=== PATIENT | male | born 1950 | race Caucasian/White ===

== ENCOUNTER 2020-04-29 02:07 | Inpatient (IN) | payer MEDICARE, OTHER ==
[2020-04-29] MEDS ORDERED: Dexamethasone 10 MG/ML VIAL ONE (02:45)
--- NOTE | 2020-04-29 03:10 | PDOC.HHP ---
Hospitalist HPI Dyspnea History of Present Illness: PCP: [place] Patient is a 69-year-old male with a past medical history significant for COPD, CAD (2 stents), HLD that presents to our hospital as a transfer via EMS from [facility] for the above complaint. Apparently, the patient was seen 2 days ago at [facility] for increased shortness of breath, productive cough and one episode of diarrhea. He was diagnosed with pneumonia and discharged home on Levaquin. Last night he returned back to [place] emergency department for worsening shortness of breath. EMS had documented an oxygen saturation of 80%. At [place] emergency department, the patient presented tachycardic, tachypneic and hypoxic. Chest x-ray showed worsening left lower lobe pneumonia. Patient tested positive for COVID-19 virus. Lactic acid 3.3, CRP 6.81, WBCs 1.8. Initial troponin less than 0.010 and BNP 11.4. D-dimer 0.42. No patient was transferred to our hospital for further evaluation and care. The patient reports subjective fever and chills. He denies abdominal pain, nausea, vomiting, hematochezia/melena. Denies dysuria and hematuria. Denies any chest pain, heart palpitations or lightheadedness. Again, he endorses increased productive cough and sputum. He has had worsening dyspnea since last night. ED Course: VITAL SIGNS Sat Apr 29, 2020 02:10 NAVARRO Goodwin, Sejal BP: 129/66, MAP: 87, Pulse: 91, Resp: 24, Pain: 0, O2 sat: 90 on (Non Rebreather), Time: 04/29/2020 02:10. Allergies/Adverse Reactions: Allergy/AdvReac Type Severity Reaction Status Date / Time Tetanus Vaccines and Toxoid Allergy Unverified 04/29/20 03:24 Comments: 1. Atorvastatin 40 mg p.o. daily 2. Aspirin 81 mg p.o. daily 3. Albuterol 90 Eliazar inhaler 2 puffs inhalation every 4 to 6 hours as needed shortness of breath wheezing 4. Spiriva 1 inhalation daily 5. Symbicort 6. Levaquin Past History: PMHx: COPD (intermittent O2 at home), HLD, CAD x2, right eye blindness PSHx: Multiple bilateral eye surgeries, hernia repair x2, tonsillectomy, CAD x2 stents FHx: Contributory for cardiac disease Social: Lives with the spouse at home. Quit smoking 10 years ago. Drinks alcohol socially. Denies any illicit drug use. Ambulates without any assistive devices. Independent. Hospitalist HPI ROS All other systems reviewed; all pertinent +/- noted in HPI/Subj Hospitalist Exam General Appearance: NAD, awake alert. negative: ill appearing General - other findings: Disheveled Eye: anicteric sclera ENT: normocephalic atraumatic, moist mucosa Neck: supple, no lymphadenopathy Heart: RRR, no murmur, no gallops, no rubs, normal peripheral pulses Respiratory: CTAB, no wheezes, no rales, no tachypnea Respiratory - other findings: Diminished lower lobes Gastrointestinal: soft, non-tender, non-distended, normal bowel sounds, no rigidity Extremities: no cyanosis, no edema Skin: no rashes Neurological: no focal deficits Psychiatric: normal affect, A&O x 3 Hospitalist Results Result Diagrams: 04/29/20 03:42 Chest x-ray Status: report reviewed by me Additional Comments: Severe bullous emphysematous change. Interstitial and alveolar opacity in the left perihilar region/left base is suspicious for infectious pneumon itis/aspiration. Follow-up imaging following treatment advised for documentation of resolution. Hospitalist H&P A/P (1) Pneumonia due to COVID-19 virus Code(s): U07.1 - COVID-19; J12.82 - PNEUMONIA DUE TO CORONAVIRUS DISEASE 2019 Status: Acute (2) Sepsis Code(s): A41.9 - SEPSIS, UNSPECIFIED ORGANISM Status: Acute (3) COPD exacerbation Code(s): J44.1 - CHRONIC OBSTRUCTIVE PULMONARY DISEASE W (ACUTE) EXACERBATION Status: Acute (4) CAD (coronary artery disease) Code(s): I25.10 - ATHSCL HEART DISEASE OF [place] CORONARY ARTERY W/O ANG PCTRS Status: Chronic (5) HLD (hyperlipidemia) Code(s): E78.5 - HYPERLIPIDEMIA, UNSPECIFIED Status: Chronic Plan: Patient with COPD and CAD presents as a transfer from [facility] for Covid pneumonia. #Pneumonia due to COVID-19 virus Diagnosed 04/28/2020 Symptomatic 04/25/2020. Currently on high flow nasal cannula 60 L/min FiO2 80%, NAD. Continue dexamethasone. Start remdesivir. Start Lovenox and PPI. Supplemental oxygen Isolation precautions Start vitamin C, vitamin D, zinc, melatonin Check acute phase reactants. #Sepsis Presented tachycardic, tachypneic, hypoxic LA 3.3, WBCs 1.8 Given 500 mL NS at [facility]. Likely related to problem #1. We will repeat lactic acid, check UA. We will get CT chest. Continue Levaquin. #COPD exacerbation Endorse increased cough, sputum, hypoxia. When reconciled, restart home dose albuterol, Spiriva, Symbicort. Continue Levaquin. Supplemental oxygen. #CAD Stents x2. Restart home dose atorvastatin and aspirin. #Hyperlipidemia Restart home dose statin Lovenox for DVT prophylaxis. Protonix for GI prophylaxis. CODE STATUS full code. Discussed the case with Dr. Grewal, who agrees with plan of care.
[2020-04-29] MEDS ORDERED: Guaifenesin DM 100-10/5 ML UDCUP PO PRN (03:15)
[2020-04-29] MEDS ORDERED: Ondansetron ODT 4 MG TAB PO PRN (03:15)
[2020-04-29] MEDS ORDERED: Acetaminophen 325 MG TAB PO PRN (03:15)
[2020-04-29] MEDS ORDERED: Benzonatate 100 MG CAP PO PRN (03:21)
[2020-04-29 04:10] LABS: Anion Gap 15 mmol/L (10-20); BUN (Urea Nitrogen) 11 mg/dL (8.4-25.7); Calc. Creatinine Clearance 0 mL/min (70-130); Calcium 7.3 mg/dL (7.8-10.44); Carbon Dioxide 18 mmol/L (23-31); Chloride 106 mmol/L (98-107); Glucose 177 mg/dL (80-115); Potassium 3.9 mmol/L (3.5-5.1); Sodium 135 mmol/L (136-145)
[2020-04-29 06:17] LABS: Bacteria/HPF None Seen HPF (None Seen); Bilirubin Negative (Negative); Blood, Urine Negative (Negative); Clarity Clear (Clear); Glucose, Urine (Dipstick) Normal (Negative); Ketone, Urine 10 mg/dL (Negative); Leukocyte Negative Leu/uL (Negative); Nitrite Negative (Negative); Protein, Urine (Dipstick) Negative (Neg-Trace); RBC/HPF 0-3 HPF (0-3); Specific Gravity, Urine 1.019 (1.002-1.036); Squamous Epithelial None Seen HPF (0-3); Urobilinogen Normal mg/dL (Less than 2); WBC/HPF 0-3 HPF (0-3); pH, Urine 5.5 (5.0-9.0)
[2020-04-29 06:22] LABS: #Lymphocytes 0.1 thou/uL (1.20-3.40); #Monocytes 0.1 thou/uL (0.11-0.59); #Neutrophils 1.3 thou/uL (1.40-6.50); %Lymphocytes 8.2 % (21.0-51.0); %Monocytes 4.3 % (0.0-10.0); %Neutrophils 87.5 % (42.0-75.0); Mean Corpuscular HGB CONC 34.3 g/dL (32.0-36.0); Mean Corpuscular Hemoglobin 30.3 pg (27.0-31.0); Mean Corpuscular Volume 88.3 fL (78.0-98.0); Mean Platelet Volume 9.6 fL (7.4-10.4); Platelet Count 88 thou/uL (130-400); RBC Distribution Width 12.2 % (11.5-14.5); Red Blood Cell (RBC) Count 4.62 mill/uL (4.70-6.10); Reflex for Review?? NO; White Blood Cell (WBC) Count 1.5 thou/uL (4.8-10.8)
--- NOTE | 2020-04-29 08:42 | CT ---
PRELIMINARY REPORT/DIRECT RADIOLOGY/EMERGENCY AFTER HOURS PROCEDURE: EXAM: CT Chest with Intravenous Contrast. CLINICAL HISTORY: Hypoxia, covid PNA TECHNIQUE: Axial computed tomography images of the chest with intravenous contrast. CONTRAST: With; ISOVUE 370,80mL COMPARISON: None provided. FINDINGS: VASCULATURE: There is no evidence of aortic dissection. No central or segmental pulmonary embolism. Scattered calcified atherosclerosis of the descending aorta. LUNGS: There are severe emphysematous changes of the bilateral lungs. There is increased groundglass attenuation and subpleural reticulation within the visualized portions of the remaining lung with area of more focal consolidation along the dependent portions of the left lower lobe. PLEURAL SPACES: No pleural effusion. No pneumothorax. HEART AND MEDIASTINUM: No cardiomegaly. No significant pericardial effusion. There is 3 vessel coron lissette artery atherosclerosis. LYMPH NODES: No lymphadenopathy. BONES: No focal osseous abnormality or acute fracture. CHEST WALL AND UPPER ABDOMEN: A hypoattenuating lesion within the posterior right hepatic lobe which is too small to fully characterize by CT criteria. There is a small hiatal hernia. The remaining visualized upper abdomen is within normal limits. The upper abdominal solid organs are otherwise unr emarkable. The chest wall is unremarkable. IMPRESSION: 1. Severe emphysematous changes of the bilateral lungs (this may represent severe smoking-related em physema or idiopathic bullous emphysema/vanishing lung syndrome). 2. Diffuse groundglass attenuation and fibrosis within the remaining little visualized lung present. Overall this may represent chronic fibrosis although an acute component is likely given reported history of COVID 19. ELECTRONICALLY SIGNED BY: Butch Anidno MD Apr 29, 2020 5:21:19 AM EXCHANGE CONSULTANT FINAL REPORT CT CHEST WITH CONTRAST: History: Hypoxia. Covid pneumonia. Comparison: Chest radiograph prior day. Findings/impression: Concordant with the initial report. Transcribed Date/Time: 04/29/2020 9:09 AM
[2020-04-29] MEDS ORDERED: REMDESIVIR (EUA) 200 MG in Sodium Chloride 0.9% 250 ML 210 ML IV SCH (09:00)
[2020-04-29] MEDS: Cholecalciferol 1,000 UNITS (25 MCG) TAB PO SCH (09:17)
[2020-04-29] MEDS: Zinc Sulfate 220 MG CAP PO SCH (09:17)
[2020-04-29] MEDS: Ascorbic Acid 500 mg Chewable Tablet PO SCH (09:17)
[2020-04-29] MEDS: Dexamethasone 4 mg/ml Vial SLOW IVP SCH (09:18)
[2020-04-29 09:33] LABS: ALT (SGPT) 18 U/L (8-55); AST (SGOT) 33 U/L (5-34); Albumin 3.5 g/dL (3.4-4.8); Alkaline Phosphatase 64 U/L (40-110); Bilirubin, Direct 0.4 mg/dL (0.1-0.3); Bilirubin, Total 0.7 mg/dL (0.2-1.2); Protein, Total 5.6 g/dL (5.8-8.1)
[2020-04-29] MEDS: Enoxaparin Sodium 40 MG/0.4 ML SYRINGE SC SCH (11:10)
[2020-04-29] MEDS ORDERED: Iopamidol-370 76% 500 ML 1 ML ONE (11:31)
--- NOTE | 2020-04-29 13:20 | PDOC.EVN ---
Event Note - Event Note Event Note: Patient's case was reviewed. Patient was assessed. Patient reports she is feeling okay but still has some work of breathing. He is still requiring significant amounts of high flow nasal cannula oxygen with high FiO2 in order to maintain oxygen saturations. His lung exam reveals very coarse breath sounds on the left with some Velcro type rales on the right. CT scan of the chest shows perhaps the worst bullous emphysema I have ever seen. His his lungs are vastly destroyed due to bullous lesions. I estimate that he only has 15 to 20% of his lung parenchyma remaining. What is remaining appears to have infiltrate or scar. Find it incredible that he is doing as well as he is now. Patient was aware of these findings with his lungs. [facility] He has been told that lung reduction surgery was not an option due to the severity. He was also told that a lung transplant would be his only real option. We had a very denny discussion regarding his situation. Going on a ventilator would be catastrophic as it would likely cause bilateral pneumothoraces very promptly which would be immediately fatal. He agreed that a ventilator would not be reasonable. In the interim we will continue to support with the best medications and oxygen support we can provide for him. Overall his prognosis is likely extremely poor given the severity of the underlying lung disease.
[2020-04-29] MEDS: Melatonin 3 MG TAB PO SCH (22:04)
[2020-04-30 05:36] LABS: ALT (SGPT) 22 U/L (8-55); AST (SGOT) 48 U/L (5-34); Albumin 3.1 g/dL (3.4-4.8); Alkaline Phosphatase 57 U/L (40-110); Bilirubin, Direct 0.3 mg/dL (0.1-0.3); Bilirubin, Total 0.7 mg/dL (0.2-1.2); Protein, Total 5.3 g/dL (5.8-8.1)
[2020-04-30] MEDS: Cholecalciferol 1,000 UNITS (25 MCG) TAB PO SCH (08:14)
[2020-04-30] MEDS: Calcium Carbonate 600 MG TAB PO SCH ×2 (08:15→20:29)
[2020-04-30] MEDS: Ascorbic Acid 500 mg Chewable Tablet PO SCH (08:15)
[2020-04-30] MEDS: Zinc Sulfate 220 MG CAP PO SCH (08:15)
[2020-04-30] MEDS: Enoxaparin Sodium 40 MG/0.4 ML SYRINGE SC SCH ×2 (08:16→08:20)
[2020-04-30] MEDS: Dexamethasone 4 mg/ml Vial SLOW IVP SCH (08:16)
[2020-04-30] MEDS: REMDESIVIR (EUA) 100 MG in Sodium Chloride 0.9% 250 ML 230 ML IV SCH (08:22)
[2020-04-30] MEDS ORDERED: Aspirin 81 mg Enteric Coated Tablet PO SCH (09:00)
[2020-04-30] MEDS ORDERED: Tiotropium Bromide 4 GM INHALER IH SCH (09:15)
[2020-04-30] MEDS ORDERED: Ipratropium Bromide 2.5 ml Neb NEB SCH (13:00)
[2020-04-30 14:33] LABS: #Lymphocytes 0.5 thou/uL (1.20-3.40); #Monocytes 0.2 thou/uL (0.11-0.59); #Neutrophils 4.8 thou/uL (1.40-6.50); %Lymphocytes 8.9 % (21.0-51.0); %Monocytes 4.4 % (0.0-10.0); %Neutrophils 86.7 % (42.0-75.0); Hemoglobin 15.8 g/dL (14.0-18.0); Mean Corpuscular HGB CONC 34.4 g/dL (32.0-36.0); Mean Corpuscular Hemoglobin 30.4 pg (27.0-31.0); Mean Corpuscular Volume 88.5 fL (78.0-98.0); Mean Platelet Volume 9.3 fL (7.4-10.4); Platelet Count 124 thou/uL (130-400); RBC Distribution Width 12.3 % (11.5-14.5); White Blood Cell (WBC) Count 5.5 thou/uL (4.8-10.8)
[2020-04-30 14:40] LABS: PTT 37.5 sec (22.9-36.1); Prothrombin Time 13.6 sec (12.0-14.7)
[2020-04-30] MEDS ORDERED: Albuterol 200 PUFF (6.7GM INHALER) INH PRN (14:49)
--- NOTE | 2020-04-30 14:52 | PDOC.HOSPP ---
- Subjective Encounter Date: 04/30/20 Subjective: Patient is fairly stable with his breathing. He reports that the effort to try to sit up to eat makes him too short of breath. He also reports that at times he is feeling very hot and that is making him feel short of breath as well. - Objective Vital Signs & Weight: Vital Signs (12 hours) Temp Pulse Resp BP BP Pulse Ox 04/30/20 12:10 98.0 F 86 14 97/58 L 92 L 04/30/20 08:15 94 L 04/30/20 07:40 98.1 F 92 18 106/59 L 94 L 04/30/20 03:37 91 L 04/30/20 03:20 99.1 F 86 22 H 144/75 H 94 L Weight Weight 151 lb 6.4 oz I&O: 04/29/20 04/30/20 05/01/20 06:59 06:59 06:59 Intake Total 2089 Balance 2089 Result Diagrams: 04/30/20 14:24 04/29/20 03:42 Hospitalist ROS - Medication Medications: Active Medications Generic Name Dose Route Start Last Admin Trade Name Ben PRN Reason Stop Dose Admin Ascorbic Acid 1,000 mg 04/29/20 09:00 04/30/20 08:15 Ascorbic Acid 500 Mg Chewable Tablet PO 1,000 mg DAILY ERENDIRA Administration Calcium Carbonate 600 mg 04/30/20 09:00 04/30/20 08:15 Calcium Carbonate 600 Mg Tab PO 600 mg BID ERENDIRA Administration Cholecalciferol 5,000 units 04/29/20 09:00 04/30/20 08:14 Cholecalciferol 1,000 Units (25 Mcg) Tab PO 5,000 units DAILY ERENDIRA Administration Dexamethasone 6 mg 04/29/20 09:00 04/30/20 08:16 Dexamethasone 4 Mg/Ml Vial SLOW IVP 6 mg DAILY ERENDIRA Administration Levofloxacin 500 mg/ Device 100 mls @ 100 mls/hr 04/29/20 04:00 04/30/20 05:55 IVPB 100 mls Q24HR ERENDIRA Administration Remdesivir 100 mg/ Sodium 250 mls @ 250 mls/hr 04/30/20 09:00 04/30/20 08:22 Chloride IV 05/03/20 09:59 250 mls 0900 ERENDIRA Administration Melatonin 3 mg 04/29/20 21:00 04/29/20 22:04 Melatonin 3 Mg Tab PO 3 mg HS ERENDIRA Administration Pantoprazole Sodium 40 mg 04/29/20 09:00 04/30/20 08:15 Pantoprazole 40 Mg Tab PO 40 mg DAILY ERENDIRA Administration Zinc Sulfate 220 mg 04/29/20 09:00 04/30/20 08:15 Zinc Sulfate 220 Mg Cap PO 220 mg DAILY ERENDIRA Administration Hospitalist Exam Vitals: Vital Signs (12 hours) Temp Pulse Resp BP BP Pulse Ox 04/30/20 12:10 98.0 F 86 14 97/58 L 92 L 04/30/20 08:15 94 L 04/30/20 07:40 98.1 F 92 18 106/59 L 94 L 04/30/20 03:37 91 L 04/30/20 03:20 99.1 F 86 22 H 144/75 H 94 L Weight Weight 151 lb 6.4 oz General Appearance: NAD, awake alert Heart: RRR, no murmur, no gallops, no rubs, normal peripheral pulses Respiratory - other findings: Coarse breath sounds on the left with rales, coarse on the right Gastrointestinal: soft, non-tender, non-distended, normal bowel sounds Extremities: no cyanosis, no clubbing, no edema Skin: normal turgor Neurological: no focal deficits Musculoskeletal: generalized weakness Psychiatric: normal affect, normal behavior Hosp A/P (1) Giant bullous emphysema Code(s): J43.9 - EMPHYSEMA, UNSPECIFIED Status: Acute (2) Acute respiratory failure with hypoxia Code(s): J96.01 - ACUTE RESPIRATORY FAILURE WITH HYPOXIA Status: Acute (3) Pancytopenia Code(s): D61.818 - OTHER PANCYTOPENIA Status: Acute (4) Hemoptysis Code(s): R04.2 - HEMOPTYSIS Status: Acute (5) Pneumonia due to COVID-19 virus Code(s): U07.1 - COVID-19; J12.82 - PNEUMONIA DUE TO CORONAVIRUS DISEASE 2019 Status: Acute (6) CAD (coronary artery disease) Code(s): I25.10 - ATHSCL HEART DISEASE OF [place] CORONARY ARTERY W/O ANG PCTRS Status: Chronic (7) HLD (hyperlipidemia) Code(s): E78.5 - HYPERLIPIDEMIA, UNSPECIFIED Status: Chronic (8) Sepsis Code(s): A41.9 - SEPSIS, UNSPECIFIED ORGANISM Status: Acute - Plan Acute hypoxic respiratory failure: Due to a combination of giant bullous emphysema and acute COVID-19 pneumonia. Continue with high flow nasal cannula. If patient progresses he may be a candidate for BiPAP. Suspect attempts at positive pressure ventilation may be highly risky given the severity of his bullous emphysema. Giant bullous emphysema: Patient was aware of this previously. He is followed by Dr. Gannon at the [facility] [place] in [place]. He is followed locally by Dr. Jeevan Daniel. 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 Only about 20% of the left lung appears to be remaining. This puts the patient at very high risk for a poor outcome due to his current Covid. We will continue with his maintenance inhalers and bronchodilators. Unclear if this represents severe bullous emphysema or "vanishing lung syndrome". Pancytopenia: Likely due to the acute viral infection. White blood cell count went down to 5 and his platelets were at 76. Appeared to be improving by 04/30/2020. Aspirin was held due to his thrombocytopenia and hemoptysis. Lovenox being held due to his hemoptysis and thrombocytopenia. COVID-19 pneumonia: Remdesivir, Decadron. Supplementing with vitamin C, vitamin D, zinc although there is little supporting evidence. Support his oxygenation is best possible. Appears to have either significant fibrosis or severe inflammatory changes of the minimal residual left lung tissue. His CRP on 04/28/2020 was 6.8, on 04/30/2020 it is 2.5. 04/28/2020 his D-dimer was normal at 0.42 Sepsis: Secondary to acute viral illness. Treat the underlying COVID-19 pneumonia. He is receiving the Remdesivir. Also receiving empirical Levaquin. Coronary artery disease: Continue with aspirin and statin. Aspirin being held due to hemoptysis and thrombocytopenia. Disposition: A long conversation with the patient and then subsequently with his and son on 04/30/2020. Patient is certainly facing an uphill ariza and should it be successful will likely be a prolonged hospitalization. They should be prepared for that. His tested positive on 04/29/2020 and his son, who is a outpatient psychiatrist and who lives with them, has tested on 04/30/2020 but results are pending. He did indicate that he has lost his sense of taste and smell.
[2020-04-30] MEDS ORDERED: Pantoprazole 40 MG VIAL IVP SCH (15:15)
[2020-04-30] MEDS: Mometasone 200 MCG/Formoterol 5 MCG 120 PUFF INHALER INH SCH (18:20)
[2020-04-30] MEDS: Melatonin 3 MG TAB PO SCH (20:29)
[2020-04-30] MEDS: Atorvastatin Calcium 40 MG TAB PO SCH (20:29)
[2020-05-01] MEDS: Mometasone 200 MCG/Formoterol 5 MCG 120 PUFF INHALER INH SCH ×2 (04:56→16:41)
[2020-05-01] MEDS: Tiotropium Bromide 4 GM INHALER IH SCH (04:56)
[2020-05-01] MEDS ORDERED: Lorazepam 2 MG/ML VIAL SLOW IVP SCH (05:00)
[2020-05-01 05:07] LABS: Hemoglobin 14.4 g/dL (14.0-18.0); Mean Corpuscular HGB CONC 34.3 g/dL (32.0-36.0); Mean Corpuscular Hemoglobin 29.9 pg (27.0-31.0); Mean Corpuscular Volume 87.1 fL (78.0-98.0); Platelet Count 136 thou/uL (130-400); RBC Distribution Width 12.2 % (11.5-14.5); Red Blood Cell (RBC) Count 4.83 mill/uL (4.70-6.10); White Blood Cell (WBC) Count 4.3 thou/uL (4.8-10.8)
[2020-05-01 05:22] LABS: ALT (SGPT) 36 U/L (8-55); AST (SGOT) 57 U/L (5-34); Albumin 3.2 g/dL (3.4-4.8); Alkaline Phosphatase 65 U/L (40-110); Anion Gap 11 mmol/L (10-20); BUN (Urea Nitrogen) 18 mg/dL (8.4-25.7); Bilirubin, Direct 0.4 mg/dL (0.1-0.3); Bilirubin, Total 0.9 mg/dL (0.2-1.2); Calc. Creatinine Clearance 104 mL/min (70-130); Calcium 7.9 mg/dL (7.8-10.44); Carbon Dioxide 23 mmol/L (23-31); Chloride 106 mmol/L (98-107); Globulin 2.2 g/dL (2.4-3.5); Glucose 131 mg/dL (80-115); Potassium 4.3 mmol/L (3.5-5.1); Protein, Total 5.4 g/dL (5.8-8.1); Sodium 136 mmol/L (136-145)
[2020-05-01 05:44] LABS: Band 9 % (5-11); Lymphocytes 17 % (21-51); MDiff Complete? YES; Monocytes 13 % (0-10); Neutrophil 61 % (42-75); Platelet Morphology Comment Appears Adequate
[2020-05-01] MEDS: Ascorbic Acid 500 mg Chewable Tablet PO SCH (08:41)
[2020-05-01] MEDS: Cholecalciferol 1,000 UNITS (25 MCG) TAB PO SCH (08:42)
[2020-05-01] MEDS: Dexamethasone 4 mg/ml Vial SLOW IVP SCH (08:42)
[2020-05-01] MEDS: Calcium Carbonate 600 MG TAB PO SCH ×2 (08:42→20:42)
[2020-05-01] MEDS: Pantoprazole 40 MG VIAL IVP SCH (08:43)
[2020-05-01] MEDS: Zinc Sulfate 220 MG CAP PO SCH (08:43)
[2020-05-01] MEDS: REMDESIVIR (EUA) 100 MG in Sodium Chloride 0.9% 250 ML 230 ML IV SCH (11:02)
--- NOTE | 2020-05-01 17:05 | PDOC.HOSPP ---
- Subjective Encounter Date: 05/01/20 Subjective: Patient reports he is actually feeling okay today. Seems to do better when he is on his right side. He is fully aware that the functional lung is on his left side and he does better when it is aerated in that position. He has been able to eat a little bit. He has been drinking some supplements as well. - Objective Vital Signs & Weight: Vital Signs (12 hours) Temp Pulse Resp BP BP Pulse Ox 05/01/20 11:15 98.3 F 94 28 H 101/52 L 91 L 05/01/20 08:45 81 28 H 117/61 88 L 05/01/20 07:40 98 Weight Weight 151 lb 6.4 oz I&O: 04/30/20 05/01/20 05/02/20 06:59 06:59 06:59 Intake Total 2090 1451.5 480 Output Total 1200 Balance 2090 251.5 480 Result Diagrams: 05/01/20 04:28 05/01/20 04:28 Hospitalist ROS - Medication Medications: Active Medications Generic Name Dose Route Start Last Admin Trade Name Freq PRN Reason Stop Dose Admin Ascorbic Acid 1,000 mg 04/29/20 09:00 05/01/20 08:41 Ascorbic Acid 500 Mg Chewable Tablet PO 1,000 mg DAILY ERENDIRA Administration Atorvastatin Calcium 40 mg 04/30/20 21:00 04/30/20 20:29 Atorvastatin Calcium 40 Mg Tab PO 40 mg HS ERENDIRA Administration Calcium Carbonate 600 mg 04/30/20 09:00 05/01/20 08:42 Calcium Carbonate 600 Mg Tab PO 600 mg BID ERENDIRA Administration Cholecalciferol 5,000 units 04/29/20 09:00 05/01/20 08:42 Cholecalciferol 1,000 Units (25 Mcg) Tab PO 5,000 units DAILY ERENDIRA Administration Dexamethasone 6 mg 04/29/20 09:00 05/01/20 08:42 Dexamethasone 4 Mg/Ml Vial SLOW IVP 6 mg DAILY ERENDIRA Administration Levofloxacin 500 mg/ Device 100 mls @ 100 mls/hr 04/29/20 04:00 05/01/20 04:56 IVPB 100 mls Q24HR ERENDIRA Administration Remdesivir 100 mg/ Sodium 250 mls @ 250 mls/hr 04/30/20 09:00 05/01/20 11:02 Chloride IV 05/03/20 09:59 250 mls 0900 ERENDIRA Administration Melatonin 3 mg 04/29/20 21:00 04/30/20 20:29 Melatonin 3 Mg Tab PO 3 mg HS ERENDIRA Administration Mometasone Furoate/Formoterol Fumar 2 puff 04/30/20 18:30 05/01/20 16:41 Mometasone 200 Mcg/Formoterol 5 Mcg 120 Puff Inhaler INH 2 puff BID-RT ERENDIRA Administration Pantoprazole Sodium 40 mg 05/01/20 09:00 05/01/20 08:43 Pantoprazole 40 Mg Vial IVP 40 mg DAILY ERENDIRA Administration Sodium Chloride 10 ml 04/29/20 03:15 05/01/20 11:02 Flush - Normal Saline 10 Ml Syringe IVF 10 ml PRN PRN Administration Saline Flush Tiotropium [place] 0 gm 05/01/20 07:00 05/01/20 04:56 Tiotropium [place] 4 Gm Inhaler IH 2 puff DAILY-RT ERENDIRA Administration Zinc Sulfate 220 mg 04/29/20 09:00 05/01/20 08:43 Zinc Sulfate 220 Mg Cap PO 220 mg DAILY ERENDIRA Administration Hospitalist Exam Vitals: Vital Signs (12 hours) Temp Pulse Resp BP BP Pulse Ox 05/01/20 11:15 98.3 F 94 28 H 101/52 L 91 L 05/01/20 08:45 81 28 H 117/61 88 L 05/01/20 07:40 98 Weight Weight 151 lb 6.4 oz General Appearance: NAD, awake alert Heart: RRR, no murmur, no gallops, no rubs, normal peripheral pulses Respiratory: tachypneic Respiratory - other findings: Coarse breath sounds bilaterally. Rales in the left base. Gastrointestinal: soft, non-tender, non-distended, normal bowel sounds, no palpable masses, no hepatomegaly, no splenomegaly Extremities: no cyanosis, no clubbing, no edema Skin: normal turgor Neurological: no focal deficits Musculoskeletal: normal tone, generalized weakness Psychiatric: normal affect, normal behavior, A&O x 3 Hosp A/P (1) Acute respiratory failure with hypoxia Code(s): J96.01 - ACUTE RESPIRATORY FAILURE WITH HYPOXIA Status: Acute (2) Giant bullous emphysema Code(s): J43.9 - EMPHYSEMA, UNSPECIFIED Status: Acute (3) Pancytopenia Code(s): D61.818 - OTHER PANCYTOPENIA Status: Resolved (4) Hemoptysis Code(s): R04.2 - HEMOPTYSIS Status: Acute (5) Pneumonia due to COVID-19 virus Code(s): U07.1 - COVID-19; J12.82 - PNEUMONIA DUE TO CORONAVIRUS DISEASE 2019 Status: Acute (6) CAD (coronary artery disease) Code(s): I25.10 - ATHSCL HEART DISEASE OF [place] CORONARY ARTERY W/O ANG PCTRS Status: Chronic (7) HLD (hyperlipidemia) Code(s): E78.5 - HYPERLIPIDEMIA, UNSPECIFIED Status: Chronic (8) Sepsis Code(s): A41.9 - SEPSIS, UNSPECIFIED ORGANISM Status: Acute - Plan Acute hypoxic respiratory failure: Due to a combination of giant bullous emphysema and acute COVID-19 pneumonia. Continue with high flow nasal cannula. If patient progresses he may be a candidate for BiPAP. Suspect attempts at positive pressure ventilation may be highly risky given the severity of his bullous emphysema. Consulted Dr. Daniel, patient's local glove cuffer. Giant bullous emphysema: Patient was aware of this previously. He is followed by Dr. Gannon at the [facility] lung [place] in [place]. He is followed locally by Dr. Jeevan Daniel. 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 Only about 20% of the left lung appears to be remaining. This puts the patient at very high risk for a poor outcome due to his current Covid. We will continue with his maintenance inhalers and bronchodilators. Unclear if this represents severe bullous emphysema or "vanishing lung syndrome". Pancytopenia: Likely due to the acute viral infection. White blood cell count went down to 5 and his platelets were at 76. Appeared to be improving by 04/30/2020. Aspirin was held due to his thrombocytopenia and hemoptysis. Lovenox was held due to his hemoptysis and thrombocytopenia. Appeared to fully resolved by 05/01/2020. Lovenox resumed at a lower dose. COVID-19 pneumonia: Remdesivir, Decadron. Supplementing with vitamin C, vitamin D, zinc although there is little supporting evidence. Support his oxygenation is best possible. Appears to have either significant fibrosis or severe inflammatory changes of the minimal residual left lung tissue. His CRP on 04/28/2020 was 6.8, on 04/30/2020 it is 2.5. Down to 1.29 on 05/01/2020 04/28/2020 his D-dimer was normal at 0.42 Appears as though this patient may have been suffering from the primary Covid infection rather than the late stage autoantibody portion. Due to the severity of his underlying lung disease it still caused him severe hypoxic respiratory failure. Sepsis: Secondary to acute viral illness. Treat the underlying COVID-19 pneumonia. He is receiving the Remdesivir. Also receiving empirical Levaquin. Coronary artery disease: Continue with aspirin and statin. Aspirin being held due to hemoptysis and thrombocytopenia. Disposition: A long conversation with the patient and then subsequently with his and son on 04/30/2020. Patient is certainly facing an uphill ariza and should it be successful will likely be a prolonged hospitalization. They should be prepared for that. His tested positive on 04/29/2020 and his son, who is a facsimile machine operator and who lives with them, has tested on 04/30/2020 but results are pending. He did indicate that he has lost his sense of taste and smell.
--- NOTE | 2020-05-01 17:41 | CON ---
DATE OF CONSULTATION: 05/01/2020 HISTORY OF PRESENT ILLNESS: Mr. Land is a 69-year-old male. He is admitted with COVID pneumonia. Chest CT shows almost no significant lung tissue on the right secondary to severe bullous disease. His left upper lobe for all practical purposes has gone as well and it appears radiographically that he is living off with his left lower lobe, which now has an infiltrate. PAST MEDICAL HISTORY: Remarkable for; 1. History of two coronary stents. 2. History of COPD. 3. History of lipid disorder. 4. He also has right eye blindness, multiple eye surgeries in the past. 5. History of herniorrhaphy x2. 6. History of tonsillectomy. MEDICATIONS: 1. He is only on Spiriva and albuterol for COPD. 2. He has aspirin and atorvastatin for his vascular issues. 3. He does have Symbicort at home. FAMILY HISTORY: Positive for vascular disease. SOCIAL HISTORY: He smoked until 10 years ago. Drinks occasionally. Not on oxygen at home. REVIEW OF SYSTEMS: Ten points otherwise negative. PHYSICAL EXAMINATION: GENERAL: No distress. VITAL SIGNS: He is afebrile. Heart rates in the 80s, respiratory rates in the 20s, oximetry is 98% when he was asleep on high-flow. When he woke up, started talking, his saturations dropped to 88 to 90. Blood pressure is 117/61. HEAD AND NECK: Unremarkable. LUNGS: Remarkable for equal breath sounds. HEART: Regular rhythm. ABDOMEN: Soft. EXTREMITIES: Without edema. LABORATORY DATA: White count 4.3, hemoglobin 14.3, platelets 136. Electrolytes are unremarkable. 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 I would wonder if he has ever had an alpha-1 antitrypsin level checked. I do not have any records. If seen him in the office, I almost certainly would have ordered this in the past. All our records in the [facility] are in the [facility] and then this admission. We will be happy to follow with the other physicians caring for him. TIME SPENT: 70-minute consult,greater than 50% of the time was spent on the unit coordinating care. Job ID: [id number] [facility]
[2020-05-01] MEDS: Melatonin 3 MG TAB PO SCH (20:42)
[2020-05-01] MEDS: Atorvastatin Calcium 40 MG TAB PO SCH (20:43)
[2020-05-02] MEDS: Mometasone 200 MCG/Formoterol 5 MCG 120 PUFF INHALER INH SCH ×3 (05:30→18:50)
[2020-05-02 05:38] LABS: ALT (SGPT) 40 U/L (8-55); AST (SGOT) 41 U/L (5-34); Albumin 3.1 g/dL (3.4-4.8); Alkaline Phosphatase 65 U/L (40-110); Bilirubin, Direct 0.5 mg/dL (0.1-0.3); Protein, Total 5.1 g/dL (5.8-8.1)
[2020-05-02] MEDS: Tiotropium Bromide 4 GM INHALER IH SCH (06:04)
[2020-05-02] MEDS: Dexamethasone 4 mg/ml Vial SLOW IVP SCH (09:02)
[2020-05-02] MEDS: Ascorbic Acid 500 mg Chewable Tablet PO SCH (09:02)
[2020-05-02] MEDS: Calcium Carbonate 600 MG TAB PO SCH ×2 (09:02→20:26)
[2020-05-02] MEDS: Enoxaparin Sodium 40 MG/0.4 ML SYRINGE SC SCH (09:02)
[2020-05-02] MEDS: Cholecalciferol 1,000 UNITS (25 MCG) TAB PO SCH (09:02)
[2020-05-02] MEDS: Pantoprazole 40 MG VIAL IVP SCH (09:03)
[2020-05-02] MEDS: Zinc Sulfate 220 MG CAP PO SCH (09:09)
[2020-05-02] MEDS: REMDESIVIR (EUA) 100 MG in Sodium Chloride 0.9% 250 ML 230 ML IV SCH (10:11)
--- NOTE | 2020-05-02 14:44 | PRG ---
DATE OF SERVICE: 05/02/2020 SUBJECTIVE: Chris Land remains stable. OBJECTIVE: VITAL SIGNS: He is afebrile. Heart rate is in the 70s, respiratory rate is in the 20s, FiO2 is at 80% this morning. Sats have been in the high 80s to up to 100%. When he talks, he desaturates. Blood pressure 118/60. LUNGS: Unchanged. HEART: Unchanged. ABDOMEN: Unchanged. IMPRESSION: 1. COVID pneumonia. 2. Severe bullous lung disease. Hopefully, he will stabilize and improve. Job ID: [id number]
[2020-05-02] MEDS ORDERED: Senokot 8.6 MG TAB PO PRN (18:01)
--- NOTE | 2020-05-02 18:02 | PDOC.HOSPP ---
- Subjective Encounter Date: 05/02/20 Subjective: Patient says he feels about the same. He is attempting to try to sit up when he can but that is still challenging for him. He does report that he has not had a bowel movement in a few days. Says that is not uncommon for him at home. He typically will take Metamucil. - Objective Vital Signs & Weight: Vital Signs (12 hours) Temp Pulse Resp BP BP Pulse Ox 05/02/20 15:46 98.2 F 82 22 H 122/70 92 L 05/02/20 15:41 92 L 05/02/20 11:35 99 F 78 22 H 118/60 86 L 05/02/20 10:42 89 L 05/02/20 09:34 98.3 F 96 22 H 99/56 L 94 L 05/02/20 07:13 100 Weight Weight 141 lb 1.6 oz I&O: 05/01/20 05/02/20 05/03/20 06:59 06:59 06:59 Intake Total 1451.5 1070 480 Output Total 1200 1450 1300 Balance 251.5 -380 -820 Result Diagrams: 05/01/20 04:28 05/01/20 04:28 Hospitalist ROS - Medication Medications: Active Medications Generic Name Dose Route Start Last Admin Trade Name Freq PRN Reason Stop Dose Admin Ascorbic Acid 1,000 mg 04/29/20 09:00 05/02/20 09:02 Ascorbic Acid 500 Mg Chewable Tablet PO 1,000 mg DAILY ERENDIRA Administration Atorvastatin Calcium 40 mg 04/30/20 21:00 05/01/20 20:43 Atorvastatin Calcium 40 Mg Tab PO 40 mg HS ERENDIRA Administration Calcium Carbonate 600 mg 04/30/20 09:00 05/02/20 09:02 Calcium Carbonate 600 Mg Tab PO 600 mg BID ERENDIRA Administration Cholecalciferol 5,000 units 04/29/20 09:00 05/02/20 09:02 Cholecalciferol 1,000 Units (25 Mcg) Tab PO 5,000 units DAILY ERENDIRA Administration Dexamethasone 6 mg 04/29/20 09:00 05/02/20 09:02 Dexamethasone 4 Mg/Ml Vial SLOW IVP 6 mg DAILY ERENDIRA Administration Enoxaparin Sodium 40 mg 05/02/20 09:00 05/02/20 09:02 Enoxaparin Sodium 40 Mg/0.4 Ml Syringe SC 40 mg 0900 ERENDIRA Administration Levofloxacin 500 mg/ Device 100 mls @ 100 mls/hr 04/29/20 04:00 05/02/20 04:20 IVPB 100 mls Q24HR ERENDIRA Administration Remdesivir 100 mg/ Sodium 250 mls @ 250 mls/hr 04/30/20 09:00 05/02/20 10:11 Chloride IV 05/03/20 09:59 250 mls 0900 ERENDIRA Administration Melatonin 3 mg 04/29/20 21:00 05/01/20 20:42 Melatonin 3 Mg Tab PO 3 mg HS ERENDIRA Administration Mometasone Furoate/Formoterol Fumar 2 puff 04/30/20 18:30 05/02/20 05:56 Mometasone 200 Mcg/Formoterol 5 Mcg 120 Puff Inhaler INH 2 puff BID-RT ERENDIRA Administration Pantoprazole Sodium 40 mg 05/01/20 09:00 05/02/20 09:03 Pantoprazole 40 Mg Vial IVP 40 mg DAILY ERENDIRA Administration Sodium Chloride 10 ml 04/29/20 03:15 05/02/20 04:20 Flush - Normal Saline 10 Ml Syringe IVF 10 ml PRN PRN Administration Saline Flush Tiotropium [place] 0 gm 05/01/20 07:00 05/02/20 06:04 Tiotropium [place] 4 Gm Inhaler IH 2 puff DAILY-RT ERENDIRA Administration Zinc Sulfate 220 mg 04/29/20 09:00 05/02/20 09:09 Zinc Sulfate 220 Mg Cap PO 220 mg DAILY ERENDIRA Administration Hospitalist Exam Vitals: Vital Signs (12 hours) Temp Pulse Resp BP BP Pulse Ox 05/02/20 15:46 98.2 F 82 22 H 122/70 92 L 05/02/20 15:41 92 L 05/02/20 11:35 99 F 78 22 H 118/60 86 L 05/02/20 10:42 89 L 05/02/20 09:34 98.3 F 96 22 H 99/56 L 94 L 05/02/20 07:13 100 Weight Weight 141 lb 1.6 oz General Appearance: NAD, awake alert Eye: PERRL Neck: supple, symmetric, no JVD, no thyromegaly, no lymphadenopathy, no carotid bruit Heart: RRR, no murmur, no gallops, no rubs, normal peripheral pulses Respiratory - other findings: Coarse breath sounds throughout with rales at the left base. Gastrointestinal: soft, non-distended, normal bowel sounds, no palpable masses, no hepatomegaly, no splenomegaly, no guarding, tender to palpation (Minimal. Diffuse.) Extremities: no cyanosis, no clubbing, no edema Skin: normal turgor Musculoskeletal: generalized weakness (Mild) Psychiatric: normal affect, normal behavior, A&O x 3 Hosp A/P (1) Acute respiratory failure with hypoxia Code(s): J96.01 - ACUTE RESPIRATORY FAILURE WITH HYPOXIA Status: Acute (2) Giant bullous emphysema Code(s): J43.9 - EMPHYSEMA, UNSPECIFIED Status: Acute (3) Pancytopenia Code(s): D61.818 - OTHER PANCYTOPENIA Status: Resolved (4) Hemoptysis Code(s): R04.2 - HEMOPTYSIS Status: Acute (5) Pneumonia due to COVID-19 virus Code(s): U07.1 - COVID-19; J12.82 - PNEUMONIA DUE TO CORONAVIRUS DISEASE 2019 Status: Acute (6) CAD (coronary artery disease) Code(s): I25.10 - ATHSCL HEART DISEASE OF [place] CORONARY ARTERY W/O ANG PCTRS Status: Chronic (7) HLD (hyperlipidemia) Code(s): E78.5 - HYPERLIPIDEMIA, UNSPECIFIED Status: Chronic (8) Sepsis Code(s): A41.9 - SEPSIS, UNSPECIFIED ORGANISM Status: Acute - Plan Acute hypoxic respiratory failure: Due to a combination of giant bullous emphysema and acute COVID-19 pneumonia. Continue with high flow nasal cannula. If patient progresses he may be a candidate for BiPAP. Suspect attempts at positive pressure ventilation may be highly risky given the severity of his bullous emphysema. Consulted Dr. Daniel, patient's local foundry process engineer. 05/02/2020 the patient remains on high flow nasal cannula at 60 L with 83% FiO2 and SaO2 varying from 80s to 90s. He appears to be able to talk in relatively complete sentences with that. Any attempts at activity lead to fairly rapid dyspnea. Recovers fairly quickly. Giant bullous emphysema: Extraordinarily severe. Patient was aware of this previously. He is followed by Dr. Gannon at the [facility] [place] in [place]. He is followed locally by Dr. Jeevan Daniel. 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 Only about 20% of the left lung appears to be remaining. The majority of that left lower lobe is affected by fibrosis and infiltrate. Appears the patient only has about 5% of lung capacity remaining that is not significantly diseased. This puts the patient at very high risk for a poor outcome due to his current Covid. We will continue with his maintenance inhalers and bronchodilators. Pancytopenia: Likely due to the acute viral infection. White blood cell count went down to 5 and his platelets were at 76. Appeared to be improving by 04/30/2020. Aspirin was held due to his thrombocytopenia and hemoptysis. Lovenox was held due to his hemoptysis and thrombocytopenia. Appeared to fully resolved by 05/01/2020. Lovenox resumed at a lower dose. COVID-19 pneumonia: Remdesivir (to be completed on 05/03/2020), Decadron. Supplementing with vitamin C, vitamin D, zinc although there is little supporting evidence. Support his oxygenation is best possible. Appears to have either significant fibrosis or severe inflammatory changes of the minimal residual left lung tissue. His CRP on 04/28/2020 was 6.8, on 04/30/2020 it is 2.5. Down to 1.29 on 05/01/2020 04/28/2020 his D-dimer was normal at 0.42 Appears as though this patient may have been suffering from the primary Covid infection rather than the late stage autoantibody portion. Due to the severity of his underlying lung disease it still caused him severe hypoxic respiratory failure. Empiric coverage with Levaquin. Sepsis: Secondary to acute viral illness. Treat the underlying COVID-19 pneumonia. He is receiving the Remdesivir. Also receiving empirical Levaquin. Coronary artery disease: Continue with aspirin and statin. Aspirin being held due to very modest hemoptysis and thrombocytopenia. Disposition: A long conversation with the patient and then subsequently with his and son on 04/30/2020. Patient is certainly facing an uphill ariza and should it be successful will likely be a prolonged hospitalization. They should be prepared for that. His tested positive on 04/29/2020 and his son, who is a laminated plastics assembler and gluer and who lives with them, has tested positive.
[2020-05-02] MEDS: Melatonin 3 MG TAB PO SCH (20:26)
[2020-05-02] MEDS: Atorvastatin Calcium 40 MG TAB PO SCH (20:26)
[2020-05-02] MEDS ORDERED: Lorazepam 2 MG/ML VIAL SLOW IVP SCH (21:15)
[2020-05-03 05:31] LABS: #Lymphocytes 0.7 thou/uL (1.20-3.40); #Monocytes 1.1 thou/uL (0.11-0.59); #Neutrophils 6.7 thou/uL (1.40-6.50); %Basophils 0.1 % (0.0-1.0); %Eosinophils 0.1 % (0.0-10.0); %Lymphocytes 8.1 % (21.0-51.0); %Monocytes 12.8 % (0.0-10.0); %Neutrophils 78.9 % (42.0-75.0); Hemoglobin 15.7 g/dL (14.0-18.0); Mean Corpuscular HGB CONC 33.7 g/dL (32.0-36.0); Mean Corpuscular Hemoglobin 29.3 pg (27.0-31.0); Mean Corpuscular Volume 87.1 fL (78.0-98.0); Mean Platelet Volume 9.2 fL (7.4-10.4); Platelet Count 200 thou/uL (130-400); RBC Distribution Width 12.1 % (11.5-14.5); Red Blood Cell (RBC) Count 5.34 mill/uL (4.70-6.10); White Blood Cell (WBC) Count 8.4 thou/uL (4.8-10.8)
[2020-05-03 05:40] LABS: ALT (SGPT) 39 U/L (8-55); AST (SGOT) 31 U/L (5-34); Albumin 3.2 g/dL (3.4-4.8); Alkaline Phosphatase 77 U/L (40-110); Anion Gap 13 mmol/L (10-20); BUN (Urea Nitrogen) 19 mg/dL (8.4-25.7); Bilirubin, Direct 0.6 mg/dL (0.1-0.3); Bilirubin, Total 1.3 mg/dL (0.2-1.2); Calc. Creatinine Clearance 97 mL/min (70-130); Carbon Dioxide 22 mmol/L (23-31); Chloride 104 mmol/L (98-107); Glucose 147 mg/dL (80-115); Potassium 3.9 mmol/L (3.5-5.1); Protein, Total 5.3 g/dL (5.8-8.1); Sodium 135 mmol/L (136-145)
[2020-05-03] MEDS: Tiotropium Bromide 4 GM INHALER IH SCH (06:08)
[2020-05-03] MEDS: Enoxaparin Sodium 40 MG/0.4 ML SYRINGE SC SCH (09:43)
[2020-05-03] MEDS: Pantoprazole 40 MG VIAL IVP SCH (09:44)
[2020-05-03] MEDS: Dexamethasone 4 mg/ml Vial SLOW IVP SCH (09:47)
[2020-05-03] MEDS: REMDESIVIR (EUA) 100 MG in Sodium Chloride 0.9% 250 ML 230 ML IV SCH (09:47)
[2020-05-03] MEDS: Cholecalciferol 1,000 UNITS (25 MCG) TAB PO SCH (09:53)
[2020-05-03] MEDS: Ascorbic Acid 500 mg Chewable Tablet PO SCH (09:54)
[2020-05-03] MEDS: Calcium Carbonate 600 MG TAB PO SCH ×2 (09:54→20:36)
[2020-05-03] MEDS: Zinc Sulfate 220 MG CAP PO SCH (09:54)
--- NOTE | 2020-05-03 14:48 | PDOC.HOSPP ---
- Subjective Encounter Date: 05/03/20 Subjective: Patient reports she feels pretty good now. He did have an episode overnight where he apparently felt a more urgent need to have a bowel movement. The nurse found him sitting on the trash can and had removed his high flow nasal cannula. His sat was down to 60 and he was starting to be somewhat confused. He was placed back on his oxygen and improved. He has full recollection of that event. A long conversation today. We had previously discussed the potential CODE STATUS. Today we reviewed that again in great detail. We discussed that he is currently doing adequately well with the high flow nasal cannula. The next step would be BiPAP. Following BiPAP we would have to consider intubation. My fear is that events like that which occurred last night demonstrate the potential for an event happening where he would require more immediate intubation. We discu ssed the fact that intubation in his case would very unlikely resulted in extubation and would very likely result in tracheostomy and a PEG tube. Patient would likely be chronically at attached to the ventilator. Patient asked appropriate questions and was able to fully understand the situation. Ultimately, he indicated that he wanted to defer that decision entirely to his and son. He said he was okay either way and had no remote preference for 1 over the other. - Objective Vital Signs & Weight: Vital Signs (12 hours) Temp Pulse Resp BP BP BP Pulse Ox 05/03/20 12:05 98.8 F 91 23 H 103/59 L 93 L 05/03/20 10:01 98.4 F 86 24 H 98/52 L 91 L 05/03/20 04:10 99.0 F 73 20 81/52 L 100 Weight Weight 141 lb 1.6 oz I&O: 05/02/20 05/03/20 05/04/20 06:59 06:59 06:59 Intake Total 1070 970 360 Output Total 1450 2100 Balance -380 -1130 360 Result Diagrams: 05/03/20 04:52 05/03/20 04:52 Hospitalist ROS - Medication Medications: Active Medications Generic Name Dose Route Start Last Admin Trade Name Freq PRN Reason Stop Dose Admin Ascorbic Acid 1,000 mg 04/29/20 09:00 05/03/20 09:54 Ascorbic Acid 500 Mg Chewable Tablet PO 1,000 mg DAILY ERENDIRA Administration Atorvastatin Calcium 40 mg 04/30/20 21:00 05/02/20 20:26 Atorvastatin Calcium 40 Mg Tab PO 40 mg HS ERENDIRA Administration Calcium Carbonate 600 mg 04/30/20 09:00 05/03/20 09:54 Calcium Carbonate 600 Mg Tab PO 600 mg BID ERENDIRA Administration Cholecalciferol 5,000 units 04/29/20 09:00 05/03/20 09:53 Cholecalciferol 1,000 Units (25 Mcg) Tab PO 5,000 units DAILY ERENDIRA Administration Dexamethasone 6 mg 04/29/20 09:00 05/03/20 09:47 Dexamethasone 4 Mg/Ml Vial SLOW IVP 6 mg DAILY ERENDIRA Administration Enoxaparin Sodium 40 mg 05/02/20 09:00 05/03/20 09:43 Enoxaparin Sodium 40 Mg/0.4 Ml Syringe SC 40 mg 0900 ERENDIRA Administration Levofloxacin 500 mg/ Device 100 mls @ 100 mls/hr 04/29/20 04:00 05/03/20 04:15 IVPB 100 mls Q24HR ERENDIRA Administration Melatonin 3 mg 04/29/20 21:00 05/02/20 20:26 Melatonin 3 Mg Tab PO 3 mg HS ERENDIRA Administration Mometasone Furoate/Formoterol Fumar 2 puff 04/30/20 18:30 05/02/20 18:50 Mometasone 200 Mcg/Formoterol 5 Mcg 120 Puff Inhaler INH 2 puff BID-RT ERENDIRA Administration Pantoprazole Sodium 40 mg 05/01/20 09:00 05/03/20 09:44 Pantoprazole 40 Mg Vial IVP 40 mg DAILY ERENDIRA Administration Sodium Chloride 10 ml 04/29/20 03:15 05/02/20 21:54 Flush - Normal Saline 10 Ml Syringe IVF 10 ml PRN PRN Administration Saline Flush Tiotropium [place] 0 gm 05/01/20 07:00 05/03/20 06:08 Tiotropium [place] 4 Gm Inhaler IH 2 puff DAILY-RT ERENDIRA Administration Zinc Sulfate 220 mg 04/29/20 09:00 05/03/20 09:54 Zinc Sulfate 220 Mg Cap PO 220 mg DAILY ERENDIRA Administration Hospitalist Exam Vitals: Vital Signs (12 hours) Temp Pulse Resp BP BP BP Pulse Ox 05/03/20 12:05 98.8 F 91 23 H 103/59 L 93 L 05/03/20 10:01 98.4 F 86 24 H 98/52 L 91 L 05/03/20 04:10 99.0 F 73 20 81/52 L 100 Weight Weight 141 lb 1.6 oz General Appearance: NAD, awake alert General - other findings: He is on high flow nasal cannula and remains a bit tachypneic. Heart: RRR, no murmur, no gallops, no rubs, normal peripheral pulses Respiratory - other findings: Coarse breath sounds with left basilar rales. Tachypnea. Gastrointestinal: soft, non-tender, non-distended, normal bowel sounds, no palpable masses, no hepatomegaly, no splenomegaly, no bruit Extremities: no cyanosis, no clubbing, no edema Skin: normal turgor Neurological: no focal deficits Musculoskeletal: generalized weakness Psychiatric: normal affect, normal behavior, A&O x 3 Hosp A/P (1) Acute respiratory failure with hypoxia Code(s): J96.01 - ACUTE RESPIRATORY FAILURE WITH HYPOXIA Status: Acute (2) Giant bullous emphysema Code(s): J43.9 - EMPHYSEMA, UNSPECIFIED Status: Acute (3) Pancytopenia Code(s): D61.818 - OTHER PANCYTOPENIA Status: Resolved (4) Hemoptysis Code(s): R04.2 - HEMOPTYSIS Status: Acute (5) Pneumonia due to COVID-19 virus Code(s): U07.1 - COVID-19; J12.82 - PNEUMONIA DUE TO CORONAVIRUS DISEASE 2019 Status: Acute (6) CAD (coronary artery disease) Code(s): I25.10 - ATHSCL HEART DISEASE OF [place] CORONARY ARTERY W/O ANG PCTRS Status: Chronic (7) HLD (hyperlipidemia) Code(s): E78.5 - HYPERLIPIDEMIA, UNSPECIFIED Status: Chronic (8) Sepsis Code(s): A41.9 - SEPSIS, UNSPECIFIED ORGANISM Status: Acute - Plan Acute hypoxic respiratory failure: Due to a combination of giant bullous emphysema and acute COVID-19 pneumonia. Continue with high flow nasal cannula. If patient progresses he may be a candidate for BiPAP. Suspect attempts at positive pressure ventilation may be highly risky given the severity of his bullous emphysema. Consulted Dr. Daniel, patient's local disaster recovery specialist. 05/02/2020 the patient remains on high flow nasal cannula at 60 L with 83% FiO2 and SaO2 varying from 80s to 90s. He appears to be able to talk in relatively complete sentences with that. Any attempts at activity lead to fairly rapid dyspnea. 05/03/2020 the patient is able to wean down through the day to an FiO2 of 63%. Giant bullous emphysema: Extraordinarily severe. Patient was aware of this previously. He is followed by Dr. Gannon at the [facility] lung [place] in [place]. He is followed locally by Dr. Jeevan Daniel. 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 Only about 20% of the left lung appears to be remaining. The majority of that left lower lobe is affected by fibrosis and infiltrate. Appears the patient only has about 5% of lung capacity remaining that is not significantly diseased. This puts the patient at very high risk for a poor outcome due to his current Covid. We will continue with his maintenance inhalers and bronchodilators. Pancytopenia: Likely due to the acute viral infection. White blood cell count went down to 5 and his platelets were at 76. Appeared to be improving by 04/30/2020. Aspirin was held due to his thrombocytopenia and hemoptysis. Lovenox was held due to his hemoptysis and thrombocytopenia. Appeared to fully resolved by 05/01/2020. Lovenox resumed at a lower dose. COVID-19 pneumonia: Remdesivir (to be completed on 05/03/2020), Decadron. Supplementing with vitamin C, vitamin D, zinc although there is little supporting evidence. Support his oxygenation is best possible. Appears to have either significant fibrosis or severe inflammatory changes of the minimal residual left lung tissue. His CRP on 04/28/2020 was 6.8, on 04/30/2020 it is 2.5. Down to 1.29 on 05/01/2020 04/28/2020 his D-dimer was normal at 0.42 Appears as though this patient may have been suffering from the primary Covid infection rather than the late stage autoantibody portion. Due to the severity of his underlying lung disease it still caused him severe hypoxic respiratory failure. Empiric coverage with Levaquin. 05/03/2020 the patient CRP has completely resolved down to 0 but his D-dimer is up to 4. Sepsis: Secondary to acute viral illness. Treat the underlying COVID-19 pneumonia. He is receiving the Remdesivir. Also receiving empirical Levaquin. Coronary artery disease: Continue with aspirin and statin. Aspirin held due to very modest hemoptysis and thrombocytopenia. With recovery of his platelets and will be resumed on 05/03/2020. Disposition: A long conversation with the patient and then subsequently with his and son on 04/30/2020. Patient is certainly facing an uphill ariza and should it be successful will likely be a prolonged hospitalization. They should be prepared for that. His tested positive on 04/29/2020 and his son, who is a manager neonatal and who lives with them, has tested positive. Consulted palliative care. Spoke with them on 05/03/2020. She had a long conversation with the patient's family. Ultimately, the decision was to stay with the [facility]. Again, the patient has completely deferred that decision to his and son.
--- NOTE | 2020-05-03 15:13 | PDOC.PALCO ---
Palliative Care Consult - Consult Details Requesting Physician: Dr Rico Reason for Consult: goals of care, complex decision-making - Allergies Allergies/Adverse Reactions: Allergies Allergy/AdvReac Type Severity Reaction Status Date / Time loratadine [From [facility]] Allergy Verified 04/29/20 06:26 - Objective Vital Signs: Vital Signs - Most Recent Temp Pulse Resp BP Pulse Ox 98.8 F 91 23 H 103/59 L 93 L 05/03/20 12:05 05/03/20 12:05 05/03/20 12:05 05/03/20 12:05 05/03/20 12:05 - Plan/Recommendations Plan: Assessed and communicated with patient. Short life review. He is a , lives independently with his spouse. Discussed resuscitation status, he confirmed that he would desire his and son Fabien to make the decision in relation to resuscitation. Communicated with patient son and via phone conference as they are both quarantined secondary to Covid. Lengthy discussion, revisiting what has been communicated by Dr Rico. Understanding of poor prognosis secondary to progressive lung disease. Elected to transition to No intubation and cardiac only at this time. They are understanding that in the future if we identify decline and reconsideration of resuscitation status needs to occur that we will revisit DNAR status. Hopeful for recovery. Requested additional food/snacks be provided to patient. Yesi Pepe also confirmed resuscitation status with patient spouse and son. Communicated with Dr Rico. Palliative care will continue to follow and revisit goal of care as appropriate as well as offer family support. [] minutes spent on this encounter with >50% of the time in counseling and coordination of care. Thank you for this very appropriate consult.
[2020-05-03] MEDS: Melatonin 3 MG TAB PO SCH (20:36)
[2020-05-03] MEDS: Atorvastatin Calcium 40 MG TAB PO SCH (20:36)
[2020-05-03] MEDS: Mometasone 200 MCG/Formoterol 5 MCG 120 PUFF INHALER INH SCH (20:36)
[2020-05-04] MEDS: Ascorbic Acid 500 mg Chewable Tablet PO SCH (08:06)
[2020-05-04] MEDS: Aspirin 81 mg Enteric Coated Tablet PO SCH (08:06)
[2020-05-04] MEDS: Dexamethasone 4 mg/ml Vial SLOW IVP SCH (08:06)
[2020-05-04] MEDS: Enoxaparin Sodium 40 MG/0.4 ML SYRINGE SC SCH (08:06)
[2020-05-04] MEDS: Calcium Carbonate 600 MG TAB PO SCH ×2 (08:07→21:30)
[2020-05-04] MEDS: Pantoprazole 40 MG VIAL IVP SCH (08:07)
[2020-05-04] MEDS: Cholecalciferol 1,000 UNITS (25 MCG) TAB PO SCH (08:07)
[2020-05-04] MEDS: Zinc Sulfate 220 MG CAP PO SCH (08:07)
--- NOTE | 2020-05-04 12:31 | PDOC.PALPN ---
Palliative Progress Note - Subjective Highflow FiO2 60%, O2 saturation at 94-95% with conversation. Frustrated over limited activity - Objective Vital Signs: Vital Signs - Most Recent Temp Pulse Resp BP Pulse Ox 98.1 F 87 24 H 95/57 L 95 05/04/20 10:26 05/04/20 10:26 05/04/20 10:26 05/04/20 10:26 05/04/20 10:26 - Physical Exam Constitutional: ill appearing HEENT: EOMI, moist MMs, sclera anicteric Respiratory: no wheezing, accessory muscle use, labored respirations, tachypnea Cardiovascular: RRR Gastrointestinal: soft, non-tender, positive bowel sounds Musculoskeletal: no cyanosis, no clubbing, no edema Neurology: moves all 4 limbs, no focal deficits Skin: cap refill <2 seconds Psychiatric: A&O x 3, normal mood - Assessment (1) Palliative care encounter Code(s): Z51.5 - ENCOUNTER FOR PALLIATIVE CARE Current Visit: Yes Status: Acute (2) Acute respiratory failure with hypoxia Code(s): J96.01 - ACUTE RESPIRATORY FAILURE WITH HYPOXIA Current Visit: Yes Status: Acute (3) COPD exacerbation Code(s): J44.1 - CHRONIC OBSTRUCTIVE PULMONARY DISEASE W (ACUTE) EXACERBATION Current Visit: Yes Status: Acute (4) Giant bullous emphysema Code(s): J43.9 - EMPHYSEMA, UNSPECIFIED Current Visit: Yes Status: Acute (5) Pneumonia due to COVID-19 virus Code(s): U07.1 - COVID-19; J12.82 - PNEUMONIA DUE TO CORONAVIRUS DISEASE 2019 Current Visit: Yes Status: Acute - Plan Plan: Continue supportive care. Family sent Cards and crossword for cognitive stimulation. Reinforced slow nature of healing from effect of Covid. Lengthy conversation with patient son Fabien and Hilton. Emotional support and therapeutic listening. Discussed slow nature with family as well in relation to healing from covid. Communicated with Dr Rico. [40] minutes spent on this encounter with >50% of the time in counseling and coordination of care. - ROS Constitutional: alert, weakness ENT: other (Denies throat irritation, difficulity swallowing) Respiratory: shortness of breath with extertion Cardiology: other (Denies chest pain, palpitations) Gastrointestinal: other (denies nausea, vomiting)
--- NOTE | 2020-05-04 14:47 | RAD ---
EXAM: Single view of the left hip HISTORY: Hip pain COMPARISON: None FINDINGS: There is mild joint space narrowing and osteophyte formation consistent with osteoarthritis . There is no evidence of acute fracture or dislocation. IMPRESSION: Mild left hip osteoarthritis
--- NOTE | 2020-05-04 14:47 | RAD ---
Single view right hip: 05/04/2020 HISTORY: Pain FINDINGS: Mild superior joint space narrowing and mild lateral acetabular osteophyte formation with n o displaced fracture. IMPRESSION: No displaced fracture.
--- NOTE | 2020-05-04 16:00 | PDOC.HOSPP ---
- Subjective Encounter Date: 05/04/20 Subjective: Continues to feel about the same. Still feels generally short of breath. Very modest cough. Still has some trouble sitting up for too long even to try to eat. He has been able to take the Ensure supplements. He has some [employer] peanut butter cups and a large bag in the room. He says he likes those but they get stuck in his teeth and drive him crazy. - Objective Vital Signs & Weight: Vital Signs (12 hours) Temp Pulse Resp BP BP Pulse Ox 05/04/20 15:48 98.3 F 85 32 H 118/75 98 05/04/20 14:36 91 L 05/04/20 10:26 98.1 F 87 24 H 95/57 L 95 05/04/20 08:00 100 22 H 95/63 91 L 05/04/20 05:28 94 L 05/04/20 05:20 98.3 F 88 20 97/61 97 Weight Weight 141 lb 1.6 oz I&O: 05/03/20 05/04/20 05/05/20 06:59 06:59 06:59 Intake Total 970 1803 240 Output Total 2100 1900 Balance -1130 -97 240 Result Diagrams: 05/03/20 04:52 05/03/20 04:52 Hospitalist ROS - Medication Medications: Active Medications Generic Name Dose Route Start Last Admin Trade Name Dillanq PRN Reason Stop Dose Admin Ascorbic Acid 1,000 mg 04/29/20 09:00 05/04/20 08:06 Ascorbic Acid 500 Mg Chewable Tablet PO 1,000 mg DAILY ERENDIRA Administration Aspirin 81 mg 05/04/20 09:00 05/04/20 08:06 Aspirin 81 Mg Enteric Coated Tablet PO 81 mg DAILY ERENDIRA Administration Atorvastatin Calcium 40 mg 04/30/20 21:00 05/03/20 20:36 Atorvastatin Calcium 40 Mg Tab PO 40 mg HS ERENDIRA Administration Calcium Carbonate 600 mg 04/30/20 09:00 05/04/20 08:07 Calcium Carbonate 600 Mg Tab PO 600 mg BID ERENDIRA Administration Cholecalciferol 5,000 units 04/29/20 09:00 05/04/20 08:07 Cholecalciferol 1,000 Units (25 Mcg) Tab PO 5,000 units DAILY ERENDIRA Administration Dexamethasone 6 mg 04/29/20 09:00 05/04/20 08:06 Dexamethasone 4 Mg/Ml Vial SLOW IVP 6 mg DAILY ERENDIRA Administration Enoxaparin Sodium 40 mg 05/02/20 09:00 05/04/20 08:06 Enoxaparin Sodium 40 Mg/0.4 Ml Syringe SC 40 mg 0900 ERENDIRA Administration Levofloxacin 500 mg/ Device 100 mls @ 100 mls/hr 04/29/20 04:00 05/04/20 04:11 IVPB 100 mls Q24HR ERENDIRA Administration Melatonin 3 mg 04/29/20 21:00 05/03/20 20:36 Melatonin 3 Mg Tab PO 3 mg HS ERENDIRA Administration Mometasone Furoate/Formoterol Fumar 2 puff 04/30/20 18:30 05/03/20 20:36 Mometasone 200 Mcg/Formoterol 5 Mcg 120 Puff Inhaler INH 2 puff BID-RT ERENDIRA Administration Pantoprazole Sodium 40 mg 05/01/20 09:00 05/04/20 08:07 Pantoprazole 40 Mg Vial IVP 40 mg DAILY ERENDIRA Administration Senna 1 tab 05/02/20 18:01 05/03/20 15:46 Senokot 8.6 Mg Tab PO 1 tab HSPRN PRN Administration Constipation Sodium Chloride 10 ml 04/29/20 03:15 05/04/20 08:06 Flush - Normal Saline 10 Ml Syringe IVF 10 ml PRN PRN Administration Saline Flush Tiotropium [place] 0 gm 05/01/20 07:00 05/03/20 06:08 Tiotropium [place] 4 Gm Inhaler IH 2 puff DAILY-RT ERENDIRA Administration Zinc Sulfate 220 mg 04/29/20 09:00 05/04/20 08:07 Zinc Sulfate 220 Mg Cap PO 220 mg DAILY ERENDIRA Administration Hospitalist Exam Vitals: Vital Signs (12 hours) Temp Pulse Resp BP BP Pulse Ox 05/04/20 15:48 98.3 F 85 32 H 118/75 98 05/04/20 14:36 91 L 05/04/20 10:26 98.1 F 87 24 H 95/57 L 95 05/04/20 08:00 100 22 H 95/63 91 L 05/04/20 05:28 94 L 05/04/20 05:20 98.3 F 88 20 97/61 97 Weight Weight 141 lb 1.6 oz General Appearance: NAD, awake alert Heart: RRR, no murmur, no gallops, no rubs, normal peripheral pulses Respiratory: CTAB, no wheezes, no rales, no ronchi, normal chest expansion, no tachypnea, normal percussion Gastrointestinal: soft, non-tender, non-distended, normal bowel sounds, no palpable masses, no hepatomegaly, no splenomegaly, no bruit Extremities: no cyanosis, no clubbing, no edema Skin: normal turgor Neurological: no focal deficits Musculoskeletal: normal tone Psychiatric: normal affect, normal behavior, A&O x 3 (Seems to not recall some of the information we discussed from day-to-day.) Hosp A/P (1) Acute respiratory failure with hypoxia Code(s): J96.01 - ACUTE RESPIRATORY FAILURE WITH HYPOXIA Status: Acute (2) Giant bullous emphysema Code(s): J43.9 - EMPHYSEMA, UNSPECIFIED Status: Acute (3) Pancytopenia Code(s): D61.818 - OTHER PANCYTOPENIA Status: Resolved (4) Hemoptysis Code(s): R04.2 - HEMOPTYSIS Status: Acute (5) Pneumonia due to COVID-19 virus Code(s): U07.1 - COVID-19; J12.82 - PNEUMONIA DUE TO CORONAVIRUS DISEASE 2019 Status: Acute (6) CAD (coronary artery disease) Code(s): I25.10 - ATHSCL HEART DISEASE OF [place] CORONARY ARTERY W/O ANG PCTRS Status: Chronic (7) HLD (hyperlipidemia) Code(s): E78.5 - HYPERLIPIDEMIA, UNSPECIFIED Status: Chronic (8) Sepsis Code(s): A41.9 - SEPSIS, UNSPECIFIED ORGANISM Status: Acute - Plan Acute hypoxic respiratory failure: Due to a combination of giant bullous emphysema and acute COVID-19 pneumonia. Continue with high flow nasal cannula. If patient progresses he may be a candidate for BiPAP. Suspect attempts at positive pressure ventilation may be highly risky given the severity of his bullous emphysema. Consulted Dr. Daniel, patient's local heart surgeon. 05/02/2020 the patient remains on high flow nasal cannula at 60 L with 83% FiO2 and SaO2 varying from 80s to 90s. He appears to be able to talk in relatively complete sentences with that. Any attempts at activity lead to fairly rapid dyspnea. 05/03/2020 the patient is able to wean down through the day to an FiO2 of 63%. 05/04/2020 he remains on 50 L/min at around 63% FiO2. PT/OT consults. Discussed the need to be judicious in his overall movements. He is free to move his much as he feels comfortable doing within the bed. He should still ask for help with getting out of the bed. Strongly encouraged him to use the Ensure supplements at least 3 times a day. He assures me that he can and will do that. Giant bullous emphysema: Extraordinarily severe. Patient was aware of this previously. He is followed by Dr. Gannon at the [facility] in [place]. He is followed locally by Dr. Jeevan Daniel. 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 Only about 20% of the left lung appears to be remaining. The majority of that left lower lobe is affected by fibrosis and infiltrate. Appears the patient only has about 5% of lung capacity remaining that is not significantly diseased. This puts the patient at very high risk for a poor outcome due to his current Covid. We will continue with his maintenance inhalers and bronchodilators. Pancytopenia: Likely due to the acute viral infection. White blood cell count went down to 5 and his platelets were at 76. Appeared to be improving by 04/30/2020. Aspirin was held due to his thrombocytopenia and hemoptysis. Lovenox was held due to his hemoptysis and thrombocytopenia. Appeared to fully resolved by 05/01/2020. Lovenox resumed at a lower dose. COVID-19 pneumonia: Remdesivir (to be completed on 05/03/2020), Decadron. Supplementing with vitamin C, vitamin D, zinc although there is little s upporting evidence. Support his oxygenation is best possible. Appears to have either significant fibrosis or severe inflammatory changes of the minimal residual left lung tissue. His CRP on 04/28/2020 was 6.8, on 04/30/2020 it is 2.5. Down to 1.29 on 05/01/2020 04/28/2020 his D-dimer was normal at 0.42 Appears as though this patient may have been suffering from the primary Covid infection rather than the late stage autoantibody portion. Due to the severity of his underlying lung disease it still caused him severe hypoxic respiratory failure. Empiric coverage with Levaquin. 05/03/2020 the patient CRP has completely resolved down to 0 but his D-dimer is up to 4. Sepsis: Secondary to acute viral illness. Treat the underlying COVID-19 pneumonia. He is receiving the Remdesivir. Also receiving empiric Levaquin. Coronary artery disease: Continue with aspirin and statin. Aspirin held due to very modest hemoptysis and thrombocytopenia. With recovery of his platelets and will be resumed on 05/03/2020. Disposition: A long conversation with the patient and then subsequently with his and son on 04/30/2020. Patient is certainly facing an uphill ariza and should it be successful will likely be a prolonged hospitalization. They should be prepared for that. His tested positive on 04/29/2020 and his son, who is a marine mechanic and who lives with them, has tested positive. Consulted palliative care. Spoke with them on 05/03/2020. She had a long conversation with the patient's family. Ultimately, the decision was to stay with the [facility]. Again, the patient has completely deferred that decision to his and son. Spoke with the patient's and son again on 05/03/2020. I have a number of concerns regarding creature comfort issues such as his food being cold etc. Concerned about his episode overnight. Ultimately I believe his is just very concerned because she is not able to be with him. In the past she is always been able to be with him when he was in the hospital.
[2020-05-04] MEDS: Lorazepam 2 MG/ML VIAL SLOW IVP PRN ×2 (17:16→23:49)
[2020-05-04] MEDS ORDERED: Sodium Chloride 0.9% 500 ML IV SCH ×2 (20:15→23:45)
[2020-05-04] MEDS ORDERED: Metoprolol Tartrate 5 MG/5 ML VIAL ONE (20:17)
[2020-05-04] MEDS ORDERED: Metoprolol Tartrate 5 MG/5 ML VIAL IVP SCH (20:30)
[2020-05-04 21:12] LABS: #Lymphocytes 0.5 thou/uL (1.20-3.40); #Monocytes 1.4 thou/uL (0.11-0.59); #Neutrophils 12.8 thou/uL (1.40-6.50); %Basophils 0.2 % (0.0-1.0); %Eosinophils 0.1 % (0.0-10.0); %Lymphocytes 3.3 % (21.0-51.0); %Monocytes 9.7 % (0.0-10.0); %Neutrophils 86.7 % (42.0-75.0); Hemoglobin 16.6 g/dL (14.0-18.0); Mean Corpuscular HGB CONC 33.8 g/dL (32.0-36.0); Mean Corpuscular Hemoglobin 29.8 pg (27.0-31.0); Mean Corpuscular Volume 88.2 fL (78.0-98.0); Mean Platelet Volume 9.2 fL (7.4-10.4); Platelet Count 279 thou/uL (130-400); RBC Distribution Width 12.2 % (11.5-14.5); Red Blood Cell (RBC) Count 5.58 mill/uL (4.70-6.10); White Blood Cell (WBC) Count 14.8 thou/uL (4.8-10.8)
[2020-05-04 21:15] LABS: Lactic Acid 2.4 mmol/L (0.5-2.2)
[2020-05-04 21:29] LABS: ALT (SGPT) 43 U/L (8-55); AST (SGOT) 30 U/L (5-34); Albumin 3.2 g/dL (3.4-4.8); Alkaline Phosphatase 93 U/L (40-110); Anion Gap 13 mmol/L (10-20); BUN (Urea Nitrogen) 20 mg/dL (8.4-25.7); Bilirubin, Direct 0.5 mg/dL (0.1-0.3); Bilirubin, Total 1.6 mg/dL (0.2-1.2); Calc. Creatinine Clearance 91 mL/min (70-130); Calcium 7.8 mg/dL (7.8-10.44); Carbon Dioxide 20 mmol/L (23-31); Chloride 104 mmol/L (98-107); Globulin 2.4 g/dL (2.4-3.5); Glucose 147 mg/dL (80-115); Magnesium 2.1 mg/dL (1.6-2.6); Potassium 4.3 mmol/L (3.5-5.1); Protein, Total 5.6 g/dL (5.8-8.1); Sodium 133 mmol/L (136-145)
[2020-05-04] MEDS: Tiotropium Bromide 4 GM INHALER IH SCH (21:29)
[2020-05-04] MEDS: Melatonin 3 MG TAB PO SCH (21:30)
[2020-05-04] MEDS ORDERED: Sodium Chloride 0.9% 500 ML IVPB SCH (21:30)
[2020-05-04] MEDS: Atorvastatin Calcium 40 MG TAB PO SCH (21:30)
--- NOTE | 2020-05-04 22:25 | ULT ---
BILATERAL LOWER EXTREMITY VENOUS DOPPLER EVALUATION PROVIDED CLINICAL HISTORY: Elevated d-dimer and concern for deep venous thrombosis TECHNIQUE: Grayscale, color doppler and spectral doppler images were obtained of the common femoral , femoral, profunda femoral, popliteal and posterior tibial veins of both lower extremities. FINDINGS: There is normal compression, flow and augmentation seen with the deep venous structures within both l ower extremities. IMPRESSION: No sonographic evidence for lower extremity deep venous thrombosis.
[2020-05-04] MEDS ORDERED: Diltiazem 125 MG in Sodium Chloride 0.9% 100 ML IVPB SCH (23:45)
[2020-05-05] MEDS ORDERED: Diltiazem 125 MG in Sodium Chloride 0.9% 100 ML IVPB SCH (01:00)
[2020-05-05] MEDS: Haloperidol Lactate 5 MG/ML VIAL SLOW IVP PRN ×6 (03:40→18:58)
[2020-05-05] MEDS: Mometasone 200 MCG/Formoterol 5 MCG 120 PUFF INHALER INH SCH ×4 (05:13→18:52)
[2020-05-05 05:19] LABS: #Lymphocytes 0.9 thou/uL (1.20-3.40); #Monocytes 1.3 thou/uL (0.11-0.59); #Neutrophils 11.3 thou/uL (1.40-6.50); %Basophils 0.2 % (0.0-1.0); %Eosinophils 0.1 % (0.0-10.0); %Lymphocytes 6.4 % (21.0-51.0); %Monocytes 9.3 % (0.0-10.0); %Neutrophils 83.9 % (42.0-75.0); Hemoglobin 15.7 g/dL (14.0-18.0); Mean Corpuscular HGB CONC 33.8 g/dL (32.0-36.0); Mean Corpuscular Hemoglobin 29.1 pg (27.0-31.0); Platelet Count 275 thou/uL (130-400); Red Blood Cell (RBC) Count 5.41 mill/uL (4.70-6.10); White Blood Cell (WBC) Count 13.4 thou/uL (4.8-10.8)
[2020-05-05 05:40] LABS: Anion Gap 14 mmol/L (10-20); BUN (Urea Nitrogen) 18 mg/dL (8.4-25.7); CRP (Inflammatory) 2.13 mg/dL (= or < 0.5); Calc. Creatinine Clearance 103 mL/min (70-130); Calcium 7.6 mg/dL (7.8-10.44); Carbon Dioxide 19 mmol/L (23-31); Chloride 108 mmol/L (98-107); Glucose 105 mg/dL (80-115); Potassium 3.9 mmol/L (3.5-5.1); Sodium 137 mmol/L (136-145)
[2020-05-05] MEDS: Tiotropium Bromide 4 GM INHALER IH SCH (07:10)
[2020-05-05] MEDS ORDERED: Sodium Chloride 0.9% 250 ML 250 ML IV SCH (07:30)
[2020-05-05] MEDS: Lorazepam 2 MG/ML VIAL SLOW IVP PRN ×2 (07:46→13:13)
[2020-05-05] MEDS: Calcium Carbonate 600 MG TAB PO SCH ×2 (07:51→19:25)
[2020-05-05] MEDS: Aspirin 81 mg Enteric Coated Tablet PO SCH (07:51)
[2020-05-05] MEDS: Ascorbic Acid 500 mg Chewable Tablet PO SCH (07:51)
[2020-05-05] MEDS: Zinc Sulfate 220 MG CAP PO SCH (07:52)
[2020-05-05] MEDS: Multivitamin W/ Minerals 1 TAB PO SCH (07:52)
[2020-05-05] MEDS: Cholecalciferol 1,000 UNITS (25 MCG) TAB PO SCH (07:52)
[2020-05-05] MEDS: Pantoprazole 40 MG VIAL IVP SCH (07:57)
[2020-05-05] MEDS: Dexamethasone 4 mg/ml Vial SLOW IVP SCH (07:57)
[2020-05-05] MEDS: Enoxaparin Sodium 40 MG/0.4 ML SYRINGE SC SCH (07:58)
--- NOTE | 2020-05-05 12:10 | PRG ---
DATE OF SERVICE: 05/05/2020 SUBJECTIVE: Mr. Land apparently attempted to go to the bathroom without oxygen last night, got confused, moved to the ICU and placed on BiPAP. He is encephalopathic now. OBJECTIVE: VITAL SIGNS: Heart rate is 102, respiratory rates in the 20s, blood pressure 88/52. LUNGS: Essentially unchanged. HEART: Essentially unchanged. ABDOMEN: Essentially unchanged. LABORATORY DATA: White count 13, hemoglobin 15, platelets 275. Sodium 137, potassium 3.9, chloride 108, bicarb 19, BUN 18, creatinine 0.63. IMPRESSION: 1. Severe bullous emphysema. 2. COVID pneumonia. 3. Do not intubate status. PLAN: Continue support. Critical care time 30 min. Job ID: [id number] MTDD
[2020-05-05] MEDS ORDERED: Bisacodyl 10 MG SUPP PR PRN (12:15)
[2020-05-05] MEDS ORDERED: Fleet Enema 133 ML BOT PR SCH (13:00)
[2020-05-05] MEDS ORDERED: Sodium Chloride 0.9% 500 ML IV SCH (16:00)
--- NOTE | 2020-05-05 16:18 | PDOC.HOSPP ---
- Subjective Encounter Date: 05/05/20 Encounter Time: 12:45 Subjective: is on bipap, awakens to touch is seen moving all extremities not fully oriented - Objective Vital Signs & Weight: Vital Signs (12 hours) Temp Pulse Resp Pulse Ox 05/05/20 15:12 103 H 100 05/05/20 12:00 99.3 F 05/05/20 11:02 102 H 100 05/05/20 08:00 99.2 F 98 05/05/20 07:15 119 H 05/05/20 07:11 89 L 05/05/20 06:58 88 27 H 89 L Weight Weight 141 lb 1.6 oz Most Recent Monitor Data Heart Rate from ECG 103 NIBP 87/55 NIBP BP-Mean 65 Respiration from ECG 27 SpO2 98 I&O: 05/04/20 05/05/20 05/06/20 06:59 06:59 06:59 Intake Total 1803 282.8 250 Output Total 1900 1450 140 Balance -97 -1167.2 110 Result Diagrams: 05/05/20 04:58 05/05/20 04:58 Hospitalist ROS - Medication Medications: Active Medications Generic Name Dose Route Start Last Admin Trade Name Freq PRN Reason Stop Dose Admin Ascorbic Acid 1,000 mg 04/29/20 09:00 05/05/20 07:51 Ascorbic Acid 500 Mg Chewable Tablet PO Not Given DAILY ERENDIRA Aspirin 81 mg 05/04/20 09:00 05/05/20 07:51 Aspirin 81 Mg Enteric Coated Tablet PO Not Given DAILY ERENDIRA Atorvastatin Calcium 40 mg 04/30/20 21:00 05/04/20 21:30 Atorvastatin Calcium 40 Mg Tab PO Not Given HS ERENDIRA Calcium Carbonate 600 mg 04/30/20 09:00 05/05/20 07:51 Calcium Carbonate 600 Mg Tab PO Not Given BID ERENDIRA Cholecalciferol 5,000 units 04/29/20 09:00 05/05/20 07:52 Cholecalciferol 1,000 Units (25 Mcg) Tab PO Not Given DAILY ERENDIRA Dexamethasone 6 mg 04/29/20 09:00 05/05/20 07:57 Dexamethasone 4 Mg/Ml Vial SLOW IVP 6 mg DAILY ERENDIRA Administration Enoxaparin Sodium 40 mg 05/02/20 09:00 05/05/20 07:58 Enoxaparin Sodium 40 Mg/0.4 Ml Syringe SC 40 mg 0900 ERENDIRA Administration Haloperidol Lactate 10 mg 05/05/20 14:00 05/05/20 15:10 Haloperidol Lactate 5 Mg/Ml Vial SLOW IVP 10 mg Q2H PRN Administration Agitation Levofloxacin 500 mg/ Device 100 mls @ 100 mls/hr 04/29/20 04:00 05/05/20 05:22 IVPB 100 mls Q24HR ERENDIRA Administration Diltiazem HCl 125 mg/ Sodium 125 mls @ 0 mls/hr 05/05/20 01:00 05/05/20 08:00 Chloride IVPB 125 mls INF ERENDIRA Administration Protocol Titrate Iron/Minerals/Multivitamins 1 tab 05/05/20 09:00 05/05/20 07:52 Multivitamin W/ Minerals 1 Tab PO Not Given DAILY ERENDIRA Lorazepam 0.5 mg 05/04/20 16:51 05/05/20 13:13 Lorazepam 2 Mg/Ml Vial SLOW IVP 0.5 mg Q6H PRN Administration Anxiety/Agitation Melatonin 3 mg 04/29/20 21:00 05/04/20 21:30 Melatonin 3 Mg Tab PO Not Given HS ERENDIRA Mometasone Furoate/Formoterol Fumar 2 puff 04/30/20 18:30 05/05/20 06:58 Mometasone 200 Mcg/Formoterol 5 Mcg 120 Puff Inhaler INH 2 puff BID-RT ERENDIRA Administration Pantoprazole Sodium 40 mg 05/01/20 09:00 05/05/20 07:57 Pantoprazole 40 Mg Vial IVP 40 mg DAILY ERENDIRA Administration Sodium Chloride 10 ml 04/29/20 03:15 05/04/20 08:06 Flush - Normal Saline 10 Ml Syringe IVF 10 ml PRN PRN Administration Saline Flush Tiotropium [place] 0 gm 05/01/20 07:00 05/05/20 07:10 Tiotropium [place] 4 Gm Inhaler IH 2 puff DAILY-RT ERENDIRA Administration Zinc Sulfate 220 mg 04/29/20 09:00 05/05/20 07:52 Zinc Sulfate 220 Mg Cap PO Not Given DAILY [facility] Hospitalist Exam Vitals: Vital Signs (12 hours) Temp Pulse Resp Pulse Ox 05/05/20 15:12 103 H 100 05/05/20 12:00 99.3 F 05/05/20 11:02 102 H 100 05/05/20 08:00 99.2 F 98 05/05/20 07:15 119 H 05/05/20 07:11 89 L 05/05/20 06:58 88 27 H 89 L Weight Weight 141 lb 1.6 oz Most Recent Monitor Data Heart Rate from ECG 103 NIBP 87/55 NIBP BP-Mean 65 Respiration from ECG 27 SpO2 98 Eye: PERRL, anicteric sclera ENT: no oropharyngeal lesions, dry oral mucosa Neck: supple, no JVD Heart: no murmur, irregular Respiratory: no wheezes Respiratory - other findings: left lung has air entry in the infra-axillary area Gastrointestinal: soft, non-tender, non-distended, normal bowel sounds Extremities: no cyanosis, no edema Neurological: cranial nerve grossly intact, no focal deficits Hosp A/P (1) Acute respiratory failure with hypoxia Code(s): J96.01 - ACUTE RESPIRATORY FAILURE WITH HYPOXIA Status: Acute (2) COPD exacerbation Code(s): J44.1 - CHRONIC OBSTRUCTIVE PULMONARY DISEASE W (ACUTE) EXACERBATION Status: Acute (3) Giant bullous emphysema Code(s): J43.9 - EMPHYSEMA, UNSPECIFIED Status: Acute (4) Hemoptysis Code(s): R04.2 - HEMOPTYSIS Status: Acute (5) Pneumonia due to COVID-19 virus Code(s): U07.1 - COVID-19; J12.82 - PNEUMONIA DUE TO CORONAVIRUS DISEASE 2019 Status: Acute (6) Sepsis Code(s): A41.9 - SEPSIS, UNSPECIFIED ORGANISM Status: Acute Qualifiers: Sepsis acute organ dysfunction status: with acute organ dysfunction Severe sepsis acute organ dysfunction type: acute respiratory failure Acute respiratory failure type: with hypoxia Severe sepsis shock status: without septic shock (7) CAD (coronary artery disease) Code(s): I25.10 - ATHSCL HEART DISEASE OF [place] CORONARY ARTERY W/O ANG PCTRS Status: Chronic Qualifiers: Coronary Disease-Associated Artery/Lesion type: [place] artery [place] vs. transplanted heart: [place] heart Associated angina: without angina Qualified Code(s): I25.10 - Atherosclerotic heart disease of [place] coronary artery without angina pectoris (8) HLD (hyperlipidemia) Code(s): E78.5 - HYPERLIPIDEMIA, UNSPECIFIED Status: Chronic Qualifiers: Hyperlipidemia type: mixed hyperlipidemia Qualified Code(s): E78.2 - Mixed hyperlipidemia (9) Pancytopenia Code(s): D61.818 - OTHER PANCYTOPENIA Status: Resolved (10) Physical deconditioning Code(s): R53.81 - OTHER [place] Status: Acute - Plan is on bipap, dexamethasone, nebs, vitc, zinc, gentle iv hydration continue cardizem drip, asp, lipitor, levaquin and melatonin haldol prn for agitation, may dc precedex drip if ok with pulm advice poor prognosis, has less than 20% lung available with giant bullae spread out in the rest of his lung spaces d/w son and over phone and gave updates patient is donot intubate he will need breaks from bipap for eating, may switch him back to high flow if he tolerates.
--- NOTE | 2020-05-05 16:20 | PDOC.PALPN ---
Palliative Progress Note - Subjective BiPap Fi02 at 100%, confused. Haldol given for restlesness/confusion - Objective Vital Signs: Vital Signs - Most Recent Temp Pulse Resp BP Pulse Ox 99.3 F 103 H 27 H 73/52 L 100 05/05/20 12:00 05/05/20 15:12 05/05/20 06:58 05/05/20 00:40 05/05/20 15:12 - Physical Exam Constitutional: ill appearing HEENT: moist MMs Respiratory: no wheezing, diminished lung sound Cardiovascular: RRR Gastrointestinal: soft, non-tender Genitourinary: mir catheter Neurology: moves all 4 limbs - Assessment (1) Palliative care encounter Code(s): Z51.5 - ENCOUNTER FOR PALLIATIVE CARE Current Visit: Yes Status: Acute (2) Acute respiratory failure with hypoxia Code(s): J96.01 - ACUTE RESPIRATORY FAILURE WITH HYPOXIA Current Visit: Yes Status: Acute (3) COPD exacerbation Code(s): J44.1 - CHRONIC OBSTRUCTIVE PULMONARY DISEASE W (ACUTE) EXACERBATION Current Visit: Yes Status: Acute (4) Giant bullous emphysema Code(s): J43.9 - EMPHYSEMA, UNSPECIFIED Current Visit: Yes Status: Acute (5) Pneumonia due to COVID-19 virus Code(s): U07.1 - COVID-19; J12.82 - PNEUMONIA DUE TO CORONAVIRUS DISEASE 2019 Current Visit: Yes Status: Acute - Plan Plan: Supportive call to patient son Fabien and Carrillo patient . Reviewed care is same, just increased secondary to change in status. They requested Family meeting, reviewed it would be the same as our daily phone calls by attending physician as they are on isolation at home secondary to Covid. Reviewed change in status, revisited supportive measures as well as prognosis disease assist. Answered all questions. Emotional support and therapeutic listening. [45] minutes spent on this encounter with >50% of the time in counseling and coordination of care. - ROS Non Response: due to mental status
[2020-05-05] MEDS: Atorvastatin Calcium 40 MG TAB PO SCH (19:25)
[2020-05-05] MEDS: Melatonin 3 MG TAB PO SCH (19:25)
[2020-05-05] MEDS: Senokot 8.6 MG TAB PO SCH (19:26)
--- NOTE | 2020-05-05 20:35 | EKG ---
Test Reason : STAT Blood Pressure : / mmHG Vent. Rate : 125 BPM Atrial Rate : 125 BPM P-R Int : 000 ms QRS Dur : 086 ms QT Int : 284 ms P-R-T Axes : 000 056 038 degrees QTc Int : 409 ms Atrial fibrillation with rapid ventricular response Possible Anterior infarct , age undetermined Abnormal ECG No previous ECGs available Confirmed by Grecia AMES ([id number]) on 05/05/2020 8:35:03 PM Referred By: ROBEL Confirmed By:Grecia AMES
[2020-05-05] MEDS: methylPREDNISolone Sod Succ/PF 125 MG/2 ML VIAL IVP SCH (22:53)
[2020-05-06] MEDS: methylPREDNISolone Sod Succ/PF 125 MG/2 ML VIAL IVP SCH ×4 (03:51→22:03)
[2020-05-06] MEDS: Mometasone 200 MCG/Formoterol 5 MCG 120 PUFF INHALER INH SCH ×2 (07:16→18:43)
[2020-05-06] MEDS: Tiotropium Bromide 4 GM INHALER IH SCH (07:19)
[2020-05-06] MEDS: Enoxaparin Sodium 40 MG/0.4 ML SYRINGE SC SCH (07:29)
[2020-05-06] MEDS: Pantoprazole 40 MG VIAL IVP SCH (07:29)
[2020-05-06] MEDS: Haloperidol Lactate 5 MG/ML VIAL SLOW IVP PRN ×6 (07:29→23:29)
[2020-05-06] MEDS: Cholecalciferol 1,000 UNITS (25 MCG) TAB PO SCH ×2 (08:01→10:34)
[2020-05-06] MEDS: Ascorbic Acid 500 mg Chewable Tablet PO SCH ×2 (08:01→10:13)
[2020-05-06] MEDS: Zinc Sulfate 220 MG CAP PO SCH ×2 (08:01→10:34)
[2020-05-06] MEDS: Aspirin 81 mg Enteric Coated Tablet PO SCH ×3 (08:01→10:34)
[2020-05-06] MEDS: Calcium Carbonate 600 MG TAB PO SCH ×3 (08:01→22:03)
[2020-05-06] MEDS: Multivitamin W/ Minerals 1 TAB PO SCH ×2 (08:01→10:14)
[2020-05-06] MEDS: Lorazepam 2 MG/ML VIAL SLOW IVP PRN (10:33)
--- NOTE | 2020-05-06 15:29 | PDOC.HOSPP ---
- Subjective Encounter Date: 05/06/20 Encounter Time: 10:50 Subjective: awake, not fully oriented, follows verbal stimuli trial of high flow was done but is back on bipap - Objective Vital Signs & Weight: Vital Signs (12 hours) Temp Pulse Resp Pulse Ox 05/06/20 11:08 100 05/06/20 08:00 98.1 F 100 05/06/20 07:19 103 H 05/06/20 07:16 112 H 21 H 100 05/06/20 04:00 97.0 F L Weight Weight 141 lb 1.6 oz Most Recent Monitor Data Heart Rate from ECG 89 NIBP 106/63 NIBP BP-Mean 77 Respiration from ECG 20 SpO2 94 I&O: 05/05/20 05/06/20 05/07/20 06:59 06:59 06:59 Intake Total 282.8 1068 240 Output Total 1450 855 100 Balance -1167.2 213 140 Result Diagrams: 05/05/20 04:58 05/05/20 04:58 Hospitalist ROS - Medication Medications: Active Medications Generic Name Dose Route Start Last Admin Trade Name Freq PRN Reason Stop Dose Admin Ascorbic Acid 1,000 mg 04/29/20 09:00 05/06/20 10:13 Ascorbic Acid 500 Mg Chewable Tablet PO 1,000 mg DAILY ERENDIRA Administration Aspirin 81 mg 05/04/20 09:00 05/06/20 10:34 Aspirin 81 Mg Enteric Coated Tablet PO 81 mg DAILY ERENDIRA Administration Atorvastatin Calcium 40 mg 04/30/20 21:00 05/05/20 19:25 Atorvastatin Calcium 40 Mg Tab PO Not Given HS ERENDIRA Calcium Carbonate 600 mg 04/30/20 09:00 05/06/20 10:13 Calcium Carbonate 600 Mg Tab PO 600 mg BID ERENDIRA Administration Cholecalciferol 5,000 units 04/29/20 09:00 05/06/20 10:34 Cholecalciferol 1,000 Units (25 Mcg) Tab PO 5,000 units DAILY ERENDIRA Administration Enoxaparin Sodium 40 mg 05/02/20 09:00 05/06/20 07:29 Enoxaparin Sodium 40 Mg/0.4 Ml Syringe SC 40 mg 0900 ERENDIRA Administration Haloperidol Lactate 10 mg 05/05/20 14:00 05/06/20 15:01 Haloperidol Lactate 5 Mg/Ml Vial SLOW IVP 10 mg Q2H PRN Administration Agitation Levofloxacin 500 mg/ Device 100 mls @ 100 mls/hr 04/29/20 04:00 05/06/20 03:51 IVPB 100 mls Q24HR ERENDIRA Administration Diltiazem HCl 125 mg/ Sodium 125 mls @ 0 mls/hr 05/05/20 01:00 05/05/20 08:00 Chloride IVPB 125 mls INF ERENDIRA Administration Protocol Titrate Iron/Minerals/Multivitamins 1 tab 05/05/20 09:00 05/06/20 10:14 Multivitamin W/ Minerals 1 Tab PO 1 tab DAILY ERENDIRA Administration Lorazepam 0.5 mg 05/04/20 16:51 05/06/20 10:33 Lorazepam 2 Mg/Ml Vial SLOW IVP 0.5 mg Q6H PRN Administration Anxiety/Agitation Melatonin 3 mg 04/29/20 21:00 05/05/20 19:25 Melatonin 3 Mg Tab PO Not Given HS ERENDIRA Methylprednisolone Sodium Succinate 125 mg 05/05/20 21:00 05/06/20 14:01 Methylprednisolone Sod Succ/Pf 125 Mg/2 Ml Vial IVP 125 mg 0300,0900,1500,2100 ERENDIRA Administration Mometasone Furoate/Formoterol Fumar 2 puff 04/30/20 18:30 05/06/20 07:16 Mometasone 200 Mcg/Formoterol 5 Mcg 120 Puff Inhaler INH 2 puff BID-RT ERENDIRA Administration Pantoprazole Sodium 40 mg 05/01/20 09:00 05/06/20 07:29 Pantoprazole 40 Mg Vial IVP 40 mg DAILY ERENDIRA Administration Senna 2 tab 05/05/20 21:00 05/05/20 19:26 Senokot 8.6 Mg Tab PO Not Given HS ERENDIRA Sodium Chloride 10 ml 04/29/20 03:15 05/04/20 08:06 Flush - Normal Saline 10 Ml Syringe IVF 10 ml PRN PRN Administration Saline Flush Tiotropium [place] 0 gm 05/01/20 07:00 05/06/20 07:19 Tiotropium [place] 4 Gm Inhaler IH 2 puff DAILY-RT ERENDIRA Administration Zinc Sulfate 220 mg 04/29/20 09:00 05/06/20 10:34 Zinc Sulfate 220 Mg Cap PO 220 mg DAILY ERENDIRA Administration Hospitalist Exam Vitals: Vital Signs (12 hours) Temp Pulse Resp Pulse Ox 05/06/20 11:08 100 05/06/20 08:00 98.1 F 100 05/06/20 07:19 103 H 05/06/20 07:16 112 H 21 H 100 05/06/20 04:00 97.0 F L Weight Weight 141 lb 1.6 oz Most Recent Monitor Data Heart Rate from ECG 89 NIBP 106/63 NIBP BP-Mean 77 Respiration from ECG 20 SpO2 94 Eye: PERRL, anicteric sclera ENT: no oropharyngeal lesions, dry oral mucosa Neck: supple, no JVD Heart: RRR, no murmur Respiratory: no wheezes, no rales Gastrointestinal: soft, non-tender, non-distended, normal bowel sounds Extremities: no cyanosis, no edema Neurological: cranial nerve grossly intact, no focal deficits Hosp A/P (1) Acute respiratory failure with hypoxia Code(s): J96.01 - ACUTE RESPIRATORY FAILURE WITH HYPOXIA Status: Acute (2) COPD exacerbation Code(s): J44.1 - CHRONIC OBSTRUCTIVE PULMONARY DISEASE W (ACUTE) EXACERBATION Status: Acute (3) Giant bullous emphysema Code(s): J43.9 - EMPHYSEMA, UNSPECIFIED Status: Acute (4) Hemoptysis Code(s): R04.2 - HEMOPTYSIS Status: Acute (5) Pneumonia due to COVID-19 virus Code(s): U07.1 - COVID-19; J12.82 - PNEUMONIA DUE TO CORONAVIRUS DISEASE 2019 Status: Acute (6) Sepsis Code(s): A41.9 - SEPSIS, UNSPECIFIED ORGANISM Status: Acute Qualifiers: Sepsis acute organ dysfunction status: with acute organ dysfunction Severe sepsis acute organ dysfunction type: acute respiratory failure Acute respiratory failure type: with hypoxia Severe sepsis shock status: without septic shock (7) CAD (coronary artery disease) Code(s): I25.10 - ATHSCL HEART DISEASE OF [place] CORONARY ARTERY W/O ANG PCTRS Status: Chronic Qualifiers: Coronary Disease-Associated Artery/Lesion type: [place] artery [place] vs. transplanted heart: [place] heart Associated angina: without angina Qualified Code(s): I25.10 - Atherosclerotic heart disease of [place] coronary artery without angina pectoris (8) HLD (hyperlipidemia) Code(s): E78.5 - HYPERLIPIDEMIA, UNSPECIFIED Status: Chronic Qualifiers: Hyperlipidemia type: mixed hyperlipidemia Qualified Code(s): E78.2 - Mixed hyperlipidemia (9) Pancytopenia Code(s): D61.818 - OTHER PANCYTOPENIA Status: Resolved (10) Physical deconditioning Code(s): R53.81 - OTHER MALAISE Status: Acute - Plan is on bipap, dexamethasone, nebs, vitc, zinc, gentle iv hydration continue asp, lipitor, levaquin and melatonin haldol prn for agitation poor prognosis, has less than 20% lung available with giant bullae spread out in the rest of his lung spaces d/w son and over phone and gave updates on 05/05, 05/06. patient is do not intubate he will need breaks from bipap for eating and drinking.
--- NOTE | 2020-05-06 16:59 | PDOC.PULPN ---
Progress Note: Subj/Obj - Subjective Date: 05/06/20 Time: 16:55 - ROS ROS unobtainable: due to mental status (not interacting today) Respiratory: no reported symptoms - Objective Allergies/Adverse Reactions: Allergies Allergy/AdvReac Type Severity Reaction Status Date / Time loratadine [From [facility]] Allergy Verified 04/29/20 06:26 MAR Reviewed: Yes Vital Signs: Vital Signs Temp 98.5 F 05/06/20 12:00 Pulse 103 H 05/06/20 07:19 Resp 21 H 05/06/20 07:16 BP 73/52 L 05/05/20 00:40 Pulse Ox 100 05/06/20 15:56 Intake & Output 05/05/20 05/06/20 05/06/20 18:59 06:59 18:59 Intake Total 750 318 240 Output Total 330 525 220 Balance 420 -207 20 Intake: Intake, IV Amount 750 318 Sodium Chloride 0.9% 10 318 ml IVF PRN PRN Rx#: [id number] Sodium Chloride 0.9% 250 250 ML 250 ml @ 999 mls/hr IV .Q16M ERENDIRA Rx#:[id number] Sodium Chloride 0.9% 500 500 ml @ 999 mls/hr IV .Q31M ERENDIRA Rx#:[id number] Oral 240 Output: Output, Matos 330 525 220 Other: Voiding Method Indwelling Catheter Indwelling Catheter Indwelling Catheter Progress Note: Exam - Physical Exam HEENT: PERRLA Cardiovascular: RRR Respiratory: prolonged expiratory phase, respiratory distress Focused Respiratory Location: decreased breath sounds: Right, Left, Upper, L ower, rhonchi: Right, Lower Gastrointestinal: soft, non-tender Musculoskeletal: no edema, pulses present Neurological: non-focal, moves all 4 limbs Progress Note: Data - Labs Result Diagrams: 05/05/20 04:58 05/05/20 04:58 Progress Note: A/P - Problems (1) Acute respiratory failure with hypoxia Current Visit: Yes Status: Acute Code(s): J96.01 - ACUTE RESPIRATORY FAILURE WITH HYPOXIA Assessment and Plan: by the end of today with increase in steroid dosing he has markedly improved and on room air saturation is 91 to 92% no distress (2) COPD exacerbation Current Visit: Yes Status: Acute Code(s): J44.1 - CHRONIC OBSTRUCTIVE PULMONARY DISEASE W (ACUTE) EXACERBATION Assessment and Plan: increased steroids for 2 days, then taper as tolerated changed mdi to nebs (3) Giant bullous emphysema Current Visit: Yes Status: Acute Code(s): J43.9 - EMPHYSEMA, UNSPECIFIED Assessment and Plan: candidate for interventional pulm? endobrochail valve? bullectomies? he has very little lung tissue remaining not sure if he is even a candidate or whether he would consent (4) Physical deconditioning Current Visit: Yes Status: Acute Code(s): R53.81 - OTHER MALAISE (5) Pneumonia due to COVID-19 virus Current Visit: Yes Status: Acute Code(s): U07.1 - COVID-19; J12.82 - PNEUMONIA DUE TO CORONAVIRUS DISEASE 2019 Assessment and Plan: on usual vit and minerals - Time Spent with Patient Time (minutes): 30
[2020-05-06] MEDS: Melatonin 3 MG TAB PO SCH (22:02)
[2020-05-06] MEDS: Senokot 8.6 MG TAB PO SCH (22:02)
[2020-05-06] MEDS: Atorvastatin Calcium 40 MG TAB PO SCH (22:03)
[2020-05-07] MEDS: methylPREDNISolone Sod Succ/PF 125 MG/2 ML VIAL IVP SCH ×4 (03:33→21:36)
[2020-05-07] MEDS: Mometasone 200 MCG/Formoterol 5 MCG 120 PUFF INHALER INH SCH ×2 (06:53→18:48)
[2020-05-07] MEDS: Zinc Sulfate 220 MG CAP PO SCH (07:41)
[2020-05-07] MEDS: Enoxaparin Sodium 40 MG/0.4 ML SYRINGE SC SCH (07:41)
[2020-05-07] MEDS: Aspirin 81 mg Enteric Coated Tablet PO SCH (07:41)
[2020-05-07] MEDS: Ascorbic Acid 500 mg Chewable Tablet PO SCH (07:41)
[2020-05-07] MEDS: Pantoprazole 40 MG VIAL IVP SCH (07:41)
[2020-05-07] MEDS: Multivitamin W/ Minerals 1 TAB PO SCH (07:41)
[2020-05-07] MEDS: Lorazepam 2 MG/ML VIAL SLOW IVP PRN ×2 (07:42→21:36)
[2020-05-07] MEDS: Cholecalciferol 1,000 UNITS (25 MCG) TAB PO SCH (07:42)
[2020-05-07] MEDS: Calcium Carbonate 600 MG TAB PO SCH ×2 (11:11→21:36)
[2020-05-07] MEDS: Sodium Chloride 0.9% 1,000 ML IV SCH (12:33)
[2020-05-07] MEDS: Haloperidol Lactate 5 MG/ML VIAL SLOW IVP PRN (13:50)
--- NOTE | 2020-05-07 14:26 | PDOC.HOSPP ---
- Subjective Encounter Date: 05/07/20 Encounter Time: 09:45 Subjective: on high flow O2, follows verbal stimuli, is not fully oriented says he will try to eat today - Objective Vital Signs & Weight: Vital Signs (12 hours) Temp Pulse Resp Pulse Ox 05/07/20 11:04 94 20 93 L 05/07/20 06:54 99 05/07/20 06:53 95 17 95 05/07/20 04:00 97.6 F 05/07/20 02:43 67 Weight Weight 141 lb 1.6 oz Most Recent Monitor Data Heart Rate from ECG 93 NIBP 159/93 NIBP BP-Mean 115 Respiration from ECG 22 SpO2 84 I&O: 05/06/20 05/07/20 05/08/20 06:59 06:59 06:59 Intake Total 1068 764 Output Total 855 675 Balance 213 89 Result Diagrams: 05/05/20 04:58 05/05/20 04:58 Hospitalist ROS - Medication Medications: Active Medications Generic Name Dose Route Start Last Admin Trade Name Freq PRN Reason Stop Dose Admin Albuterol/Ipratropium 3 ml 05/06/20 19:00 05/07/20 11:04 Ipratropium/Albuterol Sulfate 3 Ml Neb NEB 3 ml [id number] ERENDIRA Administration Ascorbic Acid 1,000 mg 04/29/20 09:00 05/07/20 07:41 Ascorbic Acid 500 Mg Chewable Tablet PO 1,000 mg DAILY ERENDIRA Administration Aspirin 81 mg 05/04/20 09:00 05/07/20 07:41 Aspirin 81 Mg Enteric Coated Tablet PO 81 mg DAILY ERENDIRA Administration Atorvastatin Calcium 40 mg 04/30/20 21:00 05/06/20 22:03 Atorvastatin Calcium 40 Mg Tab PO 40 mg HS ERENDIRA Administration Calcium Carbonate 600 mg 04/30/20 09:00 05/07/20 11:11 Calcium Carbonate 600 Mg Tab PO 600 mg BID ERENDIRA Administration Cholecalciferol 5,000 units 04/29/20 09:00 05/07/20 07:42 Cholecalciferol 1,000 Units (25 Mcg) Tab PO 5,000 units DAILY ERENDIRA Administration Enoxaparin Sodium 40 mg 05/02/20 09:00 05/07/20 07:41 Enoxaparin Sodium 40 Mg/0.4 Ml Syringe SC 40 mg 0900 ERENDIRA Administration Haloperidol Lactate 10 mg 05/05/20 14:00 05/07/20 13:50 Haloperidol Lactate 5 Mg/Ml Vial SLOW IVP 10 mg Q2H PRN Administration Agitation Levofloxacin 500 mg/ Device 100 mls @ 100 mls/hr 04/29/20 04:00 05/07/20 03:34 IVPB 100 mls Q24HR ERENDIRA Administration Diltiazem HCl 125 mg/ Sodium 125 mls @ 0 mls/hr 05/05/20 01:00 05/05/20 08:00 Chloride IVPB 125 mls INF ERENDIRA Administration Protocol Titrate Sodium Chloride 1,000 mls @ 50 mls/hr 05/07/20 11:15 05/07/20 12:33 Normal Saline 0.9% IV 1,000 mls .Q20H ERENDIRA Administration Iron/Minerals/Multivitamins 1 tab 05/05/20 09:00 05/07/20 07:41 Multivitamin W/ Minerals 1 Tab PO 1 tab DAILY ERENDIRA Administration Lorazepam 0.5 mg 05/04/20 16:51 05/07/20 07:42 Lorazepam 2 Mg/Ml Vial SLOW IVP 0.5 mg Q6H PRN Administration Anxiety/Agitation Methylprednisolone Sodium Succinate 125 mg 05/05/20 21:00 05/07/20 13:51 Methylprednisolone Sod Succ/Pf 125 Mg/2 Ml Vial IVP 125 mg 0300,0900,1500,2100 ERENDIRA Administration Mometasone Furoate/Formoterol Fumar 2 puff 04/30/20 18:30 05/07/20 06:53 Mometasone 200 Mcg/Formoterol 5 Mcg 120 Puff Inhaler INH 2 puff BID-RT ERENDIRA Administration Pantoprazole Sodium 40 mg 05/01/20 09:00 05/07/20 07:41 Pantoprazole 40 Mg Vial IVP 40 mg DAILY ERENDIRA Administration Senna 2 tab 05/05/20 21:00 05/06/20 22:02 Senokot 8.6 Mg Tab PO 2 tab HS ERENDIRA Administration Sodium Chloride 10 ml 04/29/20 03:15 05/04/20 08:06 Flush - Normal Saline 10 Ml Syringe IVF 10 ml PRN PRN Administration Saline Flush Zinc Sulfate 220 mg 04/29/20 09:00 05/07/20 07:41 Zinc Sulfate 220 Mg Cap PO 220 mg DAILY ERENDIRA Administration Hospitalist Exam Vitals: Vital Signs (12 hours) Temp Pulse Resp Pulse Ox 05/07/20 11:04 94 20 93 L 05/07/20 06:54 99 05/07/20 06:53 95 17 95 05/07/20 04:00 97.6 F 05/07/20 02:43 67 Weight Weight 141 lb 1.6 oz Most Recent Monitor Data Heart Rate from ECG 93 NIBP 159/93 NIBP BP-Mean 115 Respiration from ECG 22 SpO2 84 General Appearance: awake alert, ill appearing Eye: PERRL, anicteric sclera ENT: no oropharyngeal lesions, dry oral mucosa Neck: supple, no JVD Heart: RRR, no murmur Respiratory: no wheezes, no rales Respiratory - other findings: breath sounds in infra-axillary area left Gastrointestinal: soft, non-tender, non-distended, normal bowel sounds Extremities: no cyanosis, no edema Neurological: cranial nerve grossly intact, no focal deficits Hosp A/P (1) Acute respiratory failure with hypoxia Code(s): J96.01 - ACUTE RESPIRATORY FAILURE WITH HYPOXIA Status: Acute (2) COPD exacerbation Code(s): J44.1 - CHRONIC OBSTRUCTIVE PULMONARY DISEASE W (ACUTE) EXACERBATION Status: Acute (3) Giant bullous emphysema Code(s): J43.9 - EMPHYSEMA, UNSPECIFIED Status: Acute (4) Hemoptysis Code(s): R04.2 - HEMOPTYSIS Status: Resolved (5) Pneumonia due to COVID-19 virus Code(s): U07.1 - COVID-19; J12.82 - PNEUMONIA DUE TO CORONAVIRUS DISEASE 2019 Status: Acute (6) Sepsis Code(s): A41.9 - SEPSIS, UNSPECIFIED ORGANISM Status: Acute Qualifiers: Sepsis acute organ dysfunction status: with acute organ dysfunction Severe sepsis acute organ dysfunction type: acute respiratory failure Acute respiratory failure type: with hypoxia Severe sepsis shock status: without septic shock (7) CAD (coronary artery disease) Code(s): I25.10 - ATHSCL HEART DISEASE OF [place] CORONARY ARTERY W/O ANG PCTRS Status: Chronic Qualifiers: Coronary Disease-Associated Artery/Lesion type: [place] artery [place] vs. transplanted heart: [place] heart Associated angina: without angina Qualified Code(s): I25.10 - Atherosclerotic heart disease of [place] coronary artery without angina pectoris (8) HLD (hyperlipidemia) Code(s): E78.5 - HYPERLIPIDEMIA, UNSPECIFIED Status: Chronic Qualifiers: Hyperlipidemia type: mixed hyperlipidemia Qualified Code(s): E78.2 - Mixed hyperlipidemia (9) Pancytopenia Code(s): D61.818 - OTHER PANCYTOPENIA Status: Resolved (10) Physical deconditioning Code(s): R53.81 - OTHER MALAISE Status: Acute - Plan is on high flow from am (off bipap), dexamethasone, nebs, vitc, zinc, gentle iv hydration continue asp, lipitor, levaquin and melatonin haldol prn for agitation poor prognosis, has less than 20% lung available with giant bullae spread out in the rest of his lung spaces d/w son and over phone and gave updates on 05/05, 05/06, 05/07. patient is do not intubate encourage po intake of food and liquids as tolerated.
[2020-05-07] MEDS: Atorvastatin Calcium 40 MG TAB PO SCH (21:36)
[2020-05-07] MEDS: Senokot 8.6 MG TAB PO SCH (21:36)
--- NOTE | 2020-05-07 21:49 | PDOC.PULCC ---
CCU Progress Note: Subj/Obj - Subjective Date: 05/07/20 Time: 12:00 Narrative: he is asking for coffee, on bipap hs and high flow day - Objective Allergies/Adverse Reactions: Allergies Allergy/AdvReac Type Severity Reaction Status Date / Time loratadine [From [facility]] Allergy Verified 04/29/20 06:26 Medications: Current Medications Acetaminophen (Acetaminophen 325 Mg Tab) 650 mg PO Q4H PRN PRN Reason: Headache/Fever/Mild Pain (1-3) Albuterol/Ipratropium (Ipratropium/Albuterol Sulfate 3 Ml Neb) 3 ml NEB [id number] [facility] Last Admin: 05/07/20 18:48 Dose: 3 ml Documented by: Ascorbic Acid (Ascorbic Acid 500 Mg Chewable Tablet) 1,000 mg PO DAILY [facility] Last Admin: 05/07/20 07:41 Dose: 1,000 mg Documented by: Aspirin (Aspirin 81 Mg Enteric Coated Tablet) 81 mg PO DAILY [facility] Last Admin: 05/07/20 07:41 Dose: 81 mg Documented by: Atorvastatin Calcium (Atorvastatin Calcium 40 Mg Tab) 40 mg PO HS [facility] Last Admin: 05/07/20 21:36 Dose: 40 mg Documented by: Benzonatate (Benzonatate 100 Mg Cap) 100 mg PO TIDPRN PRN PRN Reason: Cough Bisacodyl (Bisacodyl 10 Mg Supp) 10 mg ME Q8H PRN PRN Reason: Constipation Calcium Carbonate (Calcium Carbonate 600 Mg Tab) 600 mg PO BID [facility] Last Admin: 05/07/20 21:36 Dose: 600 mg Documented by: Cholecalciferol (Cholecalciferol 1,000 Units (25 Mcg) Tab) 5,000 units PO DAILY [facility] Last Admin: 05/07/20 07:42 Dose: 5,000 units Documented by: Enoxaparin Sodium (Enoxaparin Sodium 40 Mg/0.4 Ml Syringe) 40 mg SC 0900 [facility] Last Admin: 05/07/20 07:41 Dose: 40 mg Documented by: Guaifenesin/Dextromethorphan (Guaifenesin Dm 100-10/5 Ml Udcup) 15 ml PO Q4H PRN PRN Reason: Cough Haloperidol Lactate (Haloperidol Lactate 5 Mg/Ml Vial) 10 mg SLOW IVP Q2H PRN PRN Reason: Agitation Last Admin: 05/07/20 13:50 Dose: 10 mg Documented by: Levofloxacin 500 mg/ Device 100 mls @ 100 mls/hr IVPB Q24HR [facility] Last Admin: 05/07/20 03:34 Dose: 100 mls Documented by: Diltiazem HCl 125 mg/ Sodium (Chloride) 125 mls @ 0 mls/hr IVPB INF ERENDIRA; Protocol Last Admin: 05/05/20 08:00 Dose: 125 mls Documented by: Sodium Chloride (Normal Saline 0.9%) 1,000 mls @ 50 mls/hr IV .Q20H [facility] Last Admin: 05/07/20 12:33 Dose: 1,000 mls Documented by: Iron/Minerals/Multivitamins (Multivitamin W/ Minerals 1 Tab) 1 tab PO DAILY [facility] Last Admin: 05/07/20 07:41 Dose: 1 tab Documented by: Lorazepam (Lorazepam 2 Mg/Ml Vial) 0.5 mg SLOW IVP Q6H PRN PRN Reason: Anxiety/Agitation Last Admin: 05/07/20 21:36 Dose: 0.5 mg Documented by: Melatonin (Melatonin 3 Mg Tab) 6 mg PO HS PRN PRN Reason: Insomnia Methylprednisolone Sodium Succinate (Methylprednisolone Sod Succ/Pf 125 Mg/2 Ml Vial) 125 mg IVP 0300,0900,1500,2100 [facility] Last Admin: 05/07/20 21:36 Dose: 125 mg Documented by: Mometasone Furoate/Formoterol Fumar (Mometasone 200 Mcg/Formoterol 5 Mcg 120 Puff Inhaler) 2 puff INH BID-RT [facility] Last Admin: 05/07/20 18:48 Dose: 2 puff Documented by: Ondansetron HCl (Ondansetron Odt 4 Mg Tab) 4 mg PO Q6H PRN PRN Reason: Nausea/Vomiting Pantoprazole Sodium (Pantoprazole 40 Mg Vial) 40 mg IVP DAILY [facility] Last Admin: 05/07/20 07:41 Dose: 40 mg Documented by: Senna (Senokot 8.6 Mg Tab) 2 tab PO HS [facility] Last Admin: 05/07/20 21:36 Dose: 2 tab Documented by: Sodium Chloride (Flush - Normal Saline 10 Ml Syringe) 10 ml IVF PRN PRN PRN Reason: Saline Flush Last Admin: 05/04/20 08:06 Dose: 10 ml Documented by: Zinc Sulfate (Zinc Sulfate 220 Mg Cap) 220 mg PO DAILY ERENDIRA Last Admin: 05/07/20 07:41 Dose: 220 mg Documented by: Vital Signs and I&O: Vital Signs Temp 97.3 F L 05/07/20 20:24 Pulse 88 05/07/20 18:48 Resp 24 H 05/07/20 18:48 BP 73/52 L 05/05/20 00:40 Pulse Ox 92 L 05/07/20 15:02 Intake & Output 05/07/20 05/07/20 05/08/20 06:59 18:59 06:59 Intake Total 524 1246 Output Total 400 1300 Balance 124 -54 Intake: Intake, IV Amount 324 286 Oral 200 960 Output: Urine 1300 Output, Matos 400 Other: Voiding Method Indwelling Catheter Indwelling Catheter # Bowel Movements 0 Spontaneous Breathing Test: other (60 flow and 65% fio2 high flow NC with sats 93%, not tolerating mobilization) CCU Progress Note: Exam - Physical Exam HEENT: PERRLA Cardiovascular: RRR Focused Respiratory Location: decreased breath sounds: Right, Left, Upper, Lower, rales: Right, Lower Gastrointestinal: soft, non-tender Musculoskeletal: no edema Neurological: non-focal, moves all 4 limbs CCU Progress Note: Data - Labs Result Diagrams: 05/05/20 04:58 05/05/20 04:58 - EKG Data Rate: normal CCU Progress Note: A/P - Problems (1) Acute respiratory failure with hypoxia Current Visit: Yes Status: Acute Code(s): J96.01 - ACUTE RESPIRATORY FAILURE WITH HYPOXIA Assessment and Plan: on medrol 125 mg qid somewhat improved but still on bipap hs and high flow 60 lpm 65% (2) COPD exacerbation Current Visit: Yes Status: Acute Code(s): J44.1 - CHRONIC OBSTRUCTIVE PULMONARY DISEASE W (ACUTE) EXACERBATION Assessment and Plan: bronchodilators and steroids oxygen (3) Giant bullous emphysema Current Visit: Yes Status: Chronic Code(s): J43.9 - EMPHYSEMA, UNSPECIFIED Assessment and Plan: stable (4) Physical deconditioning Current Visit: Yes Status: Acute Code(s): R53.81 - OTHER MALAISE (5) Pneumonia due to COVID-19 virus Current Visit: Yes Status: Acute Code(s): U07.1 - COVID-19; J12.82 - PNEUMONIA DUE TO CORONAVIRUS DISEASE 2019 Assessment and Plan: moderately high dose steroids - Time Spent with Patient Time (minutes): 30
[2020-05-08] MEDS: Haloperidol Lactate 5 MG/ML VIAL SLOW IVP PRN ×2 (00:48→20:34)
[2020-05-08] MEDS: methylPREDNISolone Sod Succ/PF 125 MG/2 ML VIAL IVP SCH ×2 (02:46→08:00)
[2020-05-08 04:35] LABS: Anion Gap 12 mmol/L (10-20); BUN (Urea Nitrogen) 22 mg/dL (8.4-25.7); Calc. Creatinine Clearance 98 mL/min (70-130); Calcium 7.6 mg/dL (7.8-10.44); Carbon Dioxide 20 mmol/L (23-31); Chloride 112 mmol/L (98-107); Glucose 154 mg/dL (80-115); Potassium 3.7 mmol/L (3.5-5.1); Sodium 140 mmol/L (136-145)
[2020-05-08 06:10] LABS: Band 7 % (5-11); Hemoglobin 14.1 g/dL (14.0-18.0); Lymphocytes 3 % (21-51); MDiff Complete? YES; Mean Corpuscular HGB CONC 34.7 g/dL (32.0-36.0); Mean Corpuscular Hemoglobin 30.5 pg (27.0-31.0); Mean Corpuscular Volume 88.1 fL (78.0-98.0); Mean Platelet Volume 8.6 fL (7.4-10.4); Monocytes 1 % (0-10); Neutrophil 89 % (42-75); Platelet Count 296 thou/uL (130-400); RBC Distribution Width 12.2 % (11.5-14.5); Red Blood Cell (RBC) Count 4.61 mill/uL (4.70-6.10); White Blood Cell (WBC) Count 12.6 thou/uL (4.8-10.8)
[2020-05-08] MEDS: Aspirin 81 mg Enteric Coated Tablet PO SCH (07:59)
[2020-05-08] MEDS: Multivitamin W/ Minerals 1 TAB PO SCH (07:59)
[2020-05-08] MEDS: Ascorbic Acid 500 mg Chewable Tablet PO SCH (07:59)
[2020-05-08] MEDS: Zinc Sulfate 220 MG CAP PO SCH (07:59)
[2020-05-08] MEDS: Cholecalciferol 1,000 UNITS (25 MCG) TAB PO SCH (07:59)
[2020-05-08] MEDS: Enoxaparin Sodium 40 MG/0.4 ML SYRINGE SC SCH (07:59)
[2020-05-08] MEDS: Sodium Chloride 0.9% 1,000 ML IV SCH (08:00)
[2020-05-08] MEDS: Calcium Carbonate 600 MG TAB PO SCH ×2 (08:00→20:33)
[2020-05-08] MEDS: Mometasone 200 MCG/Formoterol 5 MCG 120 PUFF INHALER INH SCH ×2 (10:37→20:31)
[2020-05-08] MEDS: Pantoprazole 40 MG VIAL IVP SCH (10:37)
[2020-05-08] MEDS: Albuterol 200 PUFF (6.7GM INHALER) INH SCH ×3 (13:06→20:31)
--- NOTE | 2020-05-08 14:53 | PRG ---
DATE OF SERVICE: 05/08/2020 SUBJECTIVE: Chris Land is resting comfortably on a high-flow cannula. Saturations are in the low 90s, FiO2 is down to 60%, which is improving over the weekend. Lungs, heart, and abdomen are unchanged. IMPRESSION: 1. COVID pneumonia. 2. Severe bullous emphysema. PLAN: Continue supportive care. Job ID: [id number]
[2020-05-08] MEDS: methylPREDNISolone Sod Succ 40 MG VIAL IVP SCH ×2 (18:12→20:32)
--- NOTE | 2020-05-08 18:50 | PDOC.HOSPP ---
- Subjective Subjective: pt was seen and examined, pt confused and sometime agitated per nursing staffs. updated pt's and son the phone. his O2 has weaned down to 50% of FiO2 - Objective Vital Signs & Weight: Weight Weight 141 lb 1.6 oz Most Recent Monitor Data Heart Rate from ECG 105 NIBP 166/86 NIBP BP-Mean 112 Respiration from ECG 34 SpO2 84 I&O: 05/07/20 05/08/20 05/09/20 06:59 06:59 06:59 Intake Total 764 2162 1227 Output Total 675 1850 600 Balance 89 312 627 Result Diagrams: 05/08/20 04:00 05/08/20 04:00 Radiology Reviewed by me: Yes EKG Reviewed by me: Yes Hospitalist ROS - Medication Medications: Active Medications Generic Name Dose Route Start Last Admin Trade Name Freq PRN Reason Stop Dose Admin Albuterol Sulfate 2 puff 05/08/20 11:00 05/08/20 14:29 Albuterol 200 Puff (6.7gm Inhaler) INH 2 puff [id number] ERENDIRA Administration Ascorbic Acid 1,000 mg 04/29/20 09:00 05/08/20 07:59 Ascorbic Acid 500 Mg Chewable Tablet PO 1,000 mg DAILY ERENDIRA Administration Aspirin 81 mg 05/04/20 09:00 05/08/20 07:59 Aspirin 81 Mg Enteric Coated Tablet PO 81 mg DAILY ERENDIRA Administration Atorvastatin Calcium 40 mg 04/30/20 21:00 05/07/20 21:36 Atorvastatin Calcium 40 Mg Tab PO 40 mg HS ERENDIRA Administration Calcium Carbonate 600 mg 04/30/20 09:00 05/08/20 08:00 Calcium Carbonate 600 Mg Tab PO 600 mg BID ERENDIRA Administration Cholecalciferol 5,000 units 04/29/20 09:00 05/08/20 07:59 Cholecalciferol 1,000 Units (25 Mcg) Tab PO 5,000 units DAILY ERENDIRA Administration Enoxaparin Sodium 40 mg 05/02/20 09:00 05/08/20 07:59 Enoxaparin Sodium 40 Mg/0.4 Ml Syringe SC 40 mg 0900 ERENDIRA Administration Haloperidol Lactate 10 mg 05/05/20 14:00 05/08/20 00:48 Haloperidol Lactate 5 Mg/Ml Vial SLOW IVP 10 mg Q2H PRN Administration Agitation Diltiazem HCl 125 mg/ Sodium 125 mls @ 0 mls/hr 05/05/20 01:00 05/05/20 08:00 Chloride IVPB 125 mls INF ERENDIRA Administration Protocol Titrate Sodium Chloride 1,000 mls @ 50 mls/hr 05/07/20 11:15 05/08/20 08:00 Normal Saline 0.9% IV Not Given .Q20H ERENDIRA Iron/Minerals/Multivitamins 1 tab 05/05/20 09:00 05/08/20 07:59 Multivitamin W/ Minerals 1 Tab PO 1 tab DAILY ERENDIRA Administration Lorazepam 0.5 mg 05/04/20 16:51 05/07/20 21:36 Lorazepam 2 Mg/Ml Vial SLOW IVP 0.5 mg Q6H PRN Administration Anxiety/Agitation Methylprednisolone Sodium Succinate 20 mg 05/08/20 13:56 05/08/20 18:12 Methylprednisolone Sod Succ 40 Mg Vial IVP 20 mg 0300,0900,1500,2100 ERENDIRA Administration Mometasone Furoate/Formoterol Fumar 2 puff 04/30/20 18:30 05/08/20 10:37 Mometasone 200 Mcg/Formoterol 5 Mcg 120 Puff Inhaler INH 2 puff BID-RT ERENDIRA Administration Pantoprazole Sodium 40 mg 05/01/20 09:00 05/08/20 10:37 Pantoprazole 40 Mg Vial IVP 40 mg DAILY ERENDIRA Administration Senna 2 tab 05/05/20 21:00 05/07/20 21:36 Senokot 8.6 Mg Tab PO 2 tab HS ERENDIRA Administration Sodium Chloride 10 ml 04/29/20 03:15 05/04/20 08:06 Flush - Normal Saline 10 Ml Syringe IVF 10 ml PRN PRN Administration Saline Flush Zinc Sulfate 220 mg 04/29/20 09:00 05/08/20 07:59 Zinc Sulfate 220 Mg Cap PO 220 mg DAILY ERENDIRA Administration Hospitalist Exam Vitals: Weight Weight 141 lb 1.6 oz Most Recent Monitor Data Heart Rate from ECG 105 NIBP 166/86 NIBP BP-Mean 112 Respiration from ECG 34 SpO2 84 General Appearance: NAD Eye: PERRL ENT: normocephalic atraumatic Neck: supple Heart: RRR Respiratory: no ronchi, wheezes Gastrointestinal: soft Extremities: no cyanosis Skin: normal turgor Neurological: cranial nerve grossly intact Psychiatric: not oriented Hosp A/P (1) Acute respiratory failure with hypoxia Code(s): J96.01 - ACUTE RESPIRATORY FAILURE WITH HYPOXIA Status: Acute (2) COPD exacerbation Code(s): J44.1 - CHRONIC OBSTRUCTIVE PULMONARY DISEASE W (ACUTE) EXACERBATION Status: Acute (3) Physical deconditioning Code(s): R53.81 - OTHER [place] Status: Acute (4) Sepsis Code(s): A41.9 - SEPSIS, UNSPECIFIED ORGANISM Status: Acute Qualifiers: Sepsis acute organ dysfunction status: with acute organ dysfunction Severe sepsis acute organ dysfunction type: acute respiratory failure Acute respiratory failure type: with hypoxia Severe sepsis shock status: without septic shock (5) CAD (coronary artery disease) Code(s): I25.10 - ATHSCL HEART DISEASE OF [place] CORONARY ARTERY W/O ANG PCTRS Status: Chronic Qualifiers: Coronary Disease-Associated Artery/Lesion type: [place] artery [place] vs. transplanted heart: [place] heart Associated angina: without angina Qualified Code(s): I25.10 - Atherosclerotic heart disease of [place] coronary artery without angina pectoris (6) Giant bullous emphysema Code(s): J43.9 - EMPHYSEMA, UNSPECIFIED Status: Chronic (7) HLD (hyperlipidemia) Code(s): E78.5 - HYPERLIPIDEMIA, UNSPECIFIED Status: Chronic Qualifiers: Hyperlipidemia type: mixed hyperlipidemia Qualified Code(s): E78.2 - Mixed hyperlipidemia (8) Hemoptysis Code(s): R04.2 - HEMOPTYSIS Status: Resolved (9) Pancytopenia Code(s): D61.818 - OTHER PANCYTOPENIA Status: Resolved - Plan Pt remains off BiBAP, now on HiFlo weaned down with FiO2 50% and tolerated with well IV steroid weaned down by Dr. Daniel. cont supportive cares. continue asp, lipitor, levaquin and melatonin haldol prn for agitation poor prognosis, has less than 20% lung available with giant bullae spread out in the rest of his lung spaces I have updated pt's and his on the phone daily. cont supportive cares. Follow AM labs/CXR appreciate Dr. Daniel's input
[2020-05-08] MEDS: Atorvastatin Calcium 40 MG TAB PO SCH (20:31)
[2020-05-08] MEDS: Doxycycline 100 MG CAP PO SCH (20:31)
[2020-05-08] MEDS: Senokot 8.6 MG TAB PO SCH (20:34)
[2020-05-09] MEDS: Sodium Chloride 0.9% 1,000 ML IV SCH (03:33)
[2020-05-09] MEDS: methylPREDNISolone Sod Succ 40 MG VIAL IVP SCH ×4 (03:34→20:34)
[2020-05-09 04:29] LABS: Anion Gap 12 mmol/L (10-20); BUN (Urea Nitrogen) 22 mg/dL (8.4-25.7); CRP (Inflammatory) Less than 0.50 mg/dL (= or < 0.5); Calc. Creatinine Clearance 105 mL/min (70-130); Calcium 7.7 mg/dL (7.8-10.44); Carbon Dioxide 21 mmol/L (23-31); Chloride 113 mmol/L (98-107); Glucose 143 mg/dL (80-115); Potassium 3.8 mmol/L (3.5-5.1); Sodium 142 mmol/L (136-145)
[2020-05-09 04:51] LABS: Band 2 % (5-11); Hemoglobin 13.6 g/dL (14.0-18.0); Lymphocytes 1 % (21-51); MDiff Complete? YES; Mean Corpuscular HGB CONC 34.3 g/dL (32.0-36.0); Mean Corpuscular Hemoglobin 30.3 pg (27.0-31.0); Mean Corpuscular Volume 88.3 fL (78.0-98.0); Mean Platelet Volume 8.5 fL (7.4-10.4); Monocytes 9 % (0-10); Neutrophil 88 % (42-75); Platelet Count 265 thou/uL (130-400); RBC Distribution Width 12.1 % (11.5-14.5); Red Blood Cell (RBC) Count 4.49 mill/uL (4.70-6.10); White Blood Cell (WBC) Count 11.2 thou/uL (4.8-10.8)
[2020-05-09] MEDS: Mometasone 200 MCG/Formoterol 5 MCG 120 PUFF INHALER INH SCH ×2 (06:04→18:04)
[2020-05-09] MEDS: Albuterol 200 PUFF (6.7GM INHALER) INH SCH ×4 (06:04→18:04)
[2020-05-09] MEDS: Doxycycline 100 MG CAP PO SCH ×2 (08:40→20:34)
[2020-05-09] MEDS: Cholecalciferol 1,000 UNITS (25 MCG) TAB PO SCH (08:41)
[2020-05-09] MEDS: Ascorbic Acid 500 mg Chewable Tablet PO SCH (08:42)
[2020-05-09] MEDS: Zinc Sulfate 220 MG CAP PO SCH (08:42)
[2020-05-09] MEDS: Multivitamin W/ Minerals 1 TAB PO SCH (08:42)
[2020-05-09] MEDS: Enoxaparin Sodium 40 MG/0.4 ML SYRINGE SC SCH (08:43)
[2020-05-09] MEDS: Pantoprazole 40 MG VIAL IVP SCH (08:44)
[2020-05-09] MEDS: Calcium Carbonate 600 MG TAB PO SCH ×2 (08:45→20:34)
--- NOTE | 2020-05-09 08:51 | RAD ---
PORTABLE CHEST: HISTORY: Followup COVID pneumonia. Respiratory failure. COMPARISON: A 04/28/2020 exam. FINDINGS: Severe emphysematous lung changes are seen. There is some improvement to the left basilar lung morgan es as compared to the prior examination. IMPRESSION: Some mild improvement to the left basilar lung change. POS: RIGOBERTO
--- NOTE | 2020-05-09 18:31 | PDOC.HOSPP ---
- Subjective Subjective: Patient was seen examined at bedside. Patient is much more alert and oriented x3. His oxygen had weaned down tremendously, he went from FiO2 of 50% now down to 5 L via nasal cannula. I have updated his family members including his and son on the phone today. - Objective Vital Signs & Weight: Vital Signs (12 hours) Temp Pulse Resp BP Pulse Ox 05/09/20 14:29 97.6 F 75 20 162/95 H 96 05/09/20 13:02 81 32 H 172/75 H 90 L 05/09/20 07:04 96 Weight Weight 141 lb 1.6 oz Most Recent Monitor Data Heart Rate from ECG 70 NIBP 176/91 NIBP BP-Mean 119 Respiration from ECG 18 SpO2 94 I&O: 05/08/20 05/09/20 05/10/20 06:59 06:59 06:59 Intake Total 2162 2347 240 Output Total 1850 1160 500 Balance 312 1187 -260 Result Diagrams: 05/09/20 03:38 05/09/20 03:38 Hospitalist ROS - Medication Medications: Active Medications Generic Name Dose Route Start Last Admin Trade Name Dillanq PRN Reason Stop Dose Admin Albuterol Sulfate 2 puff 05/08/20 11:00 05/09/20 18:04 Albuterol 200 Puff (6.7gm Inhaler) INH 2 puff [id number] ERENDIRA Administration Ascorbic Acid 1,000 mg 04/29/20 09:00 05/09/20 08:42 Ascorbic Acid 500 Mg Chewable Tablet PO 1,000 mg DAILY ERENDIRA Administration Aspirin 81 mg 05/04/20 09:00 05/08/20 07:59 Aspirin 81 Mg Enteric Coated Tablet PO 81 mg DAILY ERENDIRA Administration Atorvastatin Calcium 40 mg 04/30/20 21:00 05/08/20 20:31 Atorvastatin Calcium 40 Mg Tab PO 40 mg HS ERENDIRA Administration Calcium Carbonate 600 mg 04/30/20 09:00 05/09/20 08:45 Calcium Carbonate 600 Mg Tab PO 600 mg BID ERENDIRA Administration Cholecalciferol 5,000 units 04/29/20 09:00 05/09/20 08:41 Cholecalciferol 1,000 Units (25 Mcg) Tab PO 5,000 units DAILY ERENDIRA Administration Doxycycline Hyclate 100 mg 05/08/20 21:00 05/09/20 08:40 Doxycycline 100 Mg Cap PO 100 mg BID ERENDIRA Administration Enoxaparin Sodium 40 mg 05/02/20 09:00 05/09/20 08:43 Enoxaparin Sodium 40 Mg/0.4 Ml Syringe SC 40 mg 0900 ERENDIRA Administration Haloperidol Lactate 10 mg 05/05/20 14:00 05/08/20 20:34 Haloperidol Lactate 5 Mg/Ml Vial SLOW IVP 10 mg Q2H PRN Administration Agitation Diltiazem HCl 125 mg/ Sodium 125 mls @ 0 mls/hr 05/05/20 01:00 05/05/20 08:00 Chloride IVPB 125 mls INF ERENDIRA Administration Protocol Titrate Sodium Chloride 1,000 mls @ 50 mls/hr 05/07/20 11:15 05/09/20 03:33 Normal Saline 0.9% IV 1,000 mls .Q20H ERENDIRA Administration Iron/Minerals/Multivitamins 1 tab 05/05/20 09:00 05/09/20 08:42 Multivitamin W/ Minerals 1 Tab PO 1 tab DAILY ERENDIRA Administration Lorazepam 0.5 mg 05/04/20 16:51 05/07/20 21:36 Lorazepam 2 Mg/Ml Vial SLOW IVP 0.5 mg Q6H PRN Administration Anxiety/Agitation Methylprednisolone Sodium Succinate 20 mg 05/08/20 13:56 05/09/20 14:19 Methylprednisolone Sod Succ 40 Mg Vial IVP 20 mg 0300,0900,1500,2100 ERENDIRA Administration Mometasone Furoate/Formoterol Fumar 2 puff 04/30/20 18:30 05/09/20 18:04 Mometasone 200 Mcg/Formoterol 5 Mcg 120 Puff Inhaler INH 2 puff BID-RT ERENDIRA Administration Pantoprazole Sodium 40 mg 05/01/20 09:00 05/09/20 08:44 Pantoprazole 40 Mg Vial IVP 40 mg DAILY ERENDIRA Administration Senna 2 tab 05/05/20 21:00 05/08/20 20:34 Senokot 8.6 Mg Tab PO Not Given HS ERENDIRA Sodium Chloride 10 ml 04/29/20 03:15 05/04/20 08:06 Flush - Normal Saline 10 Ml Syringe IVF 10 ml PRN PRN Administration Saline Flush Zinc Sulfate 220 mg 04/29/20 09:00 05/09/20 08:42 Zinc Sulfate 220 Mg Cap PO 220 mg DAILY ERENDIRA Administration Hospitalist Exam Vitals: Vital Signs (12 hours) Temp Pulse Resp BP Pulse Ox 05/09/20 14:29 97.6 F 75 20 162/95 H 96 05/09/20 13:02 81 32 H 172/75 H 90 L 05/09/20 07:04 96 Weight Weight 141 lb 1.6 oz Most Recent Monitor Data Heart Rate from ECG 70 NIBP 176/91 NIBP BP-Mean 119 Respiration from ECG 18 SpO2 94 General Appearance: NAD Eye: PERRL ENT: normocephalic atraumatic Neck: supple Heart: RRR Respiratory: CTAB Gastrointestinal: soft Extremities: no cyanosis Skin: normal turgor Neurological: cranial nerve grossly intact Psychiatric: normal affect, normal behavior, A&O x 3 Hosp A/P (1) Acute respiratory failure with hypoxia Code(s): J96.01 - ACUTE RESPIRATORY FAILURE WITH HYPOXIA Status: Acute (2) COPD exacerbation Code(s): J44.1 - CHRONIC OBSTRUCTIVE PULMONARY DISEASE W (ACUTE) EXACERBATION Status: Acute (3) Physical deconditioning Code(s): R53.81 - OTHER [place] Status: Acute (4) Sepsis Code(s): A41.9 - SEPSIS, UNSPECIFIED ORGANISM Status: Acute Qualifiers: Sepsis acute organ dysfunction status: with acute organ dysfunction Severe sepsis acute organ dysfunction type: acute respiratory failure Acute respiratory failure type: with hypoxia Severe sepsis shock status: without septic shock (5) CAD (coronary artery disease) Code(s): I25.10 - ATHSCL HEART DISEASE OF [place] CORONARY ARTERY W/O ANG PCTRS Status: Chronic Qualifiers: Coronary Disease-Associated Artery/Lesion type: [place] artery [place] vs. transplanted heart: [place] heart Associated angina: without angina Qualified Code(s): I25.10 - Atherosclerotic heart disease of [place] coronary artery without angina pectoris (6) Giant bullous emphysema Code(s): J43.9 - EMPHYSEMA, UNSPECIFIED Status: Chronic (7) HLD (hyperlipidemia) Code(s): E78.5 - HYPERLIPIDEMIA, UNSPECIFIED Status: Chronic Qualifiers: Hyperlipidemia type: mixed hyperlipidemia Qualified Code(s): E78.2 - Mixed hyperlipidemia (8) Hemoptysis Code(s): R04.2 - HEMOPTYSIS Status: Resolved (9) Pancytopenia Code(s): D61.818 - OTHER PANCYTOPENIA Status: Resolved (10) Pneumonia due to COVID-19 virus Code(s): U07.1 - COVID-19; J12.82 - PNEUMONIA DUE TO CORONAVIRUS DISEASE 2019 Status: Acute - Plan Pt continue to improve, wean off to NC at 5L Continue taper steroid, empiric antibiotic with doxycycline. PT eval, transfer to tele/COVID floor updated family, pt's and son
[2020-05-09] MEDS: Melatonin 3 MG TAB PO PRN (20:34)
[2020-05-09] MEDS: Senokot 8.6 MG TAB PO SCH (20:34)
[2020-05-09] MEDS: Atorvastatin Calcium 40 MG TAB PO SCH (20:34)
[2020-05-10] MEDS: methylPREDNISolone Sod Succ 40 MG VIAL IVP SCH ×3 (03:10→21:49)
[2020-05-10 05:22] LABS: #Lymphocytes 0.6 thou/uL (1.20-3.40); #Neutrophils 14.4 thou/uL (1.40-6.50); %Basophils 0.2 % (0.0-1.0); %Eosinophils 0.1 % (0.0-10.0); %Lymphocytes 3.7 % (21.0-51.0); %Monocytes 6.4 % (0.0-10.0); %Neutrophils 89.7 % (42.0-75.0); Mean Corpuscular HGB CONC 33.3 g/dL (32.0-36.0); Mean Corpuscular Hemoglobin 29.5 pg (27.0-31.0); Mean Corpuscular Volume 88.5 fL (78.0-98.0); Mean Platelet Volume 8.7 fL (7.4-10.4); Platelet Count 276 thou/uL (130-400); RBC Distribution Width 12.1 % (11.5-14.5); Red Blood Cell (RBC) Count 5.09 mill/uL (4.70-6.10); White Blood Cell (WBC) Count 16.1 thou/uL (4.8-10.8)
[2020-05-10 05:40] LABS: Anion Gap 10 mmol/L (10-20); BUN (Urea Nitrogen) 18 mg/dL (8.4-25.7); CRP (Inflammatory) Less than 0.50 mg/dL (= or < 0.5); Calc. Creatinine Clearance 108 mL/min (70-130); Calcium 7.8 mg/dL (7.8-10.44); Carbon Dioxide 23 mmol/L (23-31); Chloride 109 mmol/L (98-107); Glucose 131 mg/dL (80-115); Potassium 3.6 mmol/L (3.5-5.1); Sodium 138 mmol/L (136-145)
[2020-05-10] MEDS: Albuterol 200 PUFF (6.7GM INHALER) INH SCH ×4 (07:00→18:32)
[2020-05-10] MEDS: Calcium Carbonate 600 MG TAB PO SCH ×2 (09:14→21:49)
[2020-05-10] MEDS: Aspirin 81 mg Enteric Coated Tablet PO SCH (09:14)
[2020-05-10] MEDS: Cholecalciferol 1,000 UNITS (25 MCG) TAB PO SCH (09:14)
[2020-05-10] MEDS: Multivitamin W/ Minerals 1 TAB PO SCH (09:15)
[2020-05-10] MEDS: Ascorbic Acid 500 mg Chewable Tablet PO SCH (09:15)
[2020-05-10] MEDS: Enoxaparin Sodium 40 MG/0.4 ML SYRINGE SC SCH (09:15)
[2020-05-10] MEDS: Pantoprazole 40 MG VIAL IVP SCH (09:16)
[2020-05-10] MEDS: Zinc Sulfate 220 MG CAP PO SCH (09:19)
[2020-05-10] MEDS: Doxycycline 100 MG CAP PO SCH ×2 (09:19→21:49)
[2020-05-10] MEDS: Mometasone 200 MCG/Formoterol 5 MCG 120 PUFF INHALER INH SCH ×2 (11:55→18:35)
[2020-05-10 13:00] VITALS: BMI 22.7
--- NOTE | 2020-05-10 15:07 | PDOC.PALPN ---
Palliative Progress Note - Subjective Resting in bed, converses easily. O2 via NC @ 5liters. Hopeful for activity today with PT. States he believes if he continues to do well he will go home in the next day or two. - Objective Vital Signs: Vital Signs - Most Recent Temp Pulse Resp BP Pulse Ox 98.0 F 95 18 118/57 L 96 05/10/20 12:30 05/10/20 12:30 05/10/20 12:30 05/10/20 12:30 05/10/20 12:30 - Physical Exam Constitutional: NAD, cachectic, confusion, emaciated HEENT: EOMI, moist MMs, sclera anicteric Respiratory: no rales, no rhonchi, no wheezing, diminished lung sound Cardiovascular: RRR Gastrointestinal: soft, non-tender, positive bowel sounds Genitourinary: continent Neurology: moves all 4 limbs, no focal deficits Skin: cap refill <2 seconds, fragile Psychiatric: A&O x 3, normal mood - Assessment (1) Palliative care encounter Code(s): Z51.5 - ENCOUNTER FOR PALLIATIVE CARE Current Visit: Yes Status: Acute (2) Acute respiratory failure with hypoxia Code(s): J96.01 - ACUTE RESPIRATORY FAILURE WITH HYPOXIA Current Visit: Yes Status: Acute (3) COPD exacerbation Code(s): J44.1 - CHRONIC OBSTRUCTIVE PULMONARY DISEASE W (ACUTE) EXACERBATION Current Visit: Yes Status: Acute (4) Giant bullous emphysema Code(s): J43.9 - EMPHYSEMA, UNSPECIFIED Current Visit: Yes Status: Chronic (5) Pneumonia due to COVID-19 virus Code(s): U07.1 - COVID-19; J12.82 - PNEUMONIA DUE TO CORONAVIRUS DISEASE 2019 Current Visit: Yes Status: Acute - Plan Plan: Tolerating O2 via NC Hopeful for continued improvement. His son and will have their first child in July, he is looking forward to being home and active with his grandchild. Hope to return to the home setting for continued gnosticism to prior health status. Aware of chronic lung disease and trajectory. Palliative care will sign off as Goals addressed, symptoms managed. Thank you for this very appropriate consult. Please re consult if we can further assist with revisiting Goal of care, complex decision making, prognosis disease assist. Attempted to call Carrillo and patient son Fabien, no answer - left voice mail. [30] minutes spent on this encounter with >50% of the time in counseling and coordination of care. - ROS Constitutional: alert, weakness ENT: other (Denies throat irritation or discomfort) Respiratory: shortness of breath with extertion Cardiology: other (Denies chest pain/palpitations) Musculoskeletal: arthritis/arthralgias
--- NOTE | 2020-05-10 17:02 | PDOC.HOSPP ---
- Subjective Subjective: The surgery went and examined the no other acute complaint pain is better evaluated is actually due to patient was seen examined at bedside. He continued to improve, and. Talkative today. He stated his appetite is good. I also update his on the phone. He is currently is on nasal cannula 5 L, and sat in the mid 90%. Stated she is feeling well. He is eager to go home. He already have home O2. His would like him to go home on home health and home PT. - Objective Vital Signs & Weight: Vital Signs (12 hours) Temp Pulse Resp BP BP Pulse Ox 05/10/20 15:30 98.8 F 78 18 127/69 94 L 05/10/20 12:30 98.0 F 95 18 118/57 L 96 05/10/20 07:23 96 05/10/20 07:05 98.6 F 85 18 130/84 95 Weight Admit Weight 151 lb 4.8 oz Weight 141 lb 1.6 oz Most Recent Monitor Data Heart Rate from ECG 70 NIBP 176/91 NIBP BP-Mean 119 Respiration from ECG 18 SpO2 94 I&O: 05/09/20 05/10/20 05/11/20 06:59 06:59 06:59 Intake Total 2347 390 Output Total 1167 7315 675 Balance 6491 -6047 -247 Result Diagrams: 05/10/20 05:00 05/10/20 05:00 Radiology Reviewed by me: Yes EKG Reviewed by me: Yes Hospitalist ROS - Medication Medications: Active Medications Generic Name Dose Route Start Last Admin Trade Name Freq PRN Reason Stop Dose Admin Albuterol Sulfate 2 puff 05/08/20 11:00 05/10/20 14:34 Albuterol 200 Puff (6.7gm Inhaler) INH 2 puff [id number] ERENDIRA Administration Ascorbic Acid 1,000 mg 04/29/20 09:00 05/10/20 09:15 Ascorbic Acid 500 Mg Chewable Tablet PO 1,000 mg DAILY ERENDIRA Administration Aspirin 81 mg 05/04/20 09:00 05/10/20 09:14 Aspirin 81 Mg Enteric Coated Tablet PO 81 mg DAILY ERENDIRA Administration Atorvastatin Calcium 40 mg 04/30/20 21:00 05/09/20 20:34 Atorvastatin Calcium 40 Mg Tab PO 40 mg HS ERENDIRA Administration Calcium Carbonate 600 mg 04/30/20 09:00 05/10/20 09:14 Calcium Carbonate 600 Mg Tab PO 600 mg BID ERENDIRA Administration Cholecalciferol 5,000 units 04/29/20 09:00 05/10/20 09:14 Cholecalciferol 1,000 Units (25 Mcg) Tab PO 5,000 units DAILY ERENDIRA Administration Doxycycline Hyclate 100 mg 05/08/20 21:00 05/10/20 09:19 Doxycycline 100 Mg Cap PO 100 mg BID ERENDIRA Administration Enoxaparin Sodium 40 mg 05/02/20 09:00 05/10/20 09:15 Enoxaparin Sodium 40 Mg/0.4 Ml Syringe SC 40 mg 0900 ERENDIRA Administration Diltiazem HCl 125 mg/ Sodium 125 mls @ 0 mls/hr 05/05/20 01:00 05/05/20 08:00 Chloride IVPB 125 mls INF ERENDIRA Administration Protocol Titrate Iron/Minerals/Multivitamins 1 tab 05/05/20 09:00 05/10/20 09:15 Multivitamin W/ Minerals 1 Tab PO 1 tab DAILY ERENDIRA Administration Lorazepam 0.5 mg 05/04/20 16:51 05/07/20 21:36 Lorazepam 2 Mg/Ml Vial SLOW IVP 0.5 mg Q6H PRN Administration Anxiety/Agitation Melatonin 6 mg 05/06/20 16:56 05/09/20 20:34 Melatonin 3 Mg Tab PO 6 mg HS PRN Administration Insomnia Mometasone Furoate/Formoterol Fumar 2 puff 04/30/20 18:30 05/10/20 11:55 Mometasone 200 Mcg/Formoterol 5 Mcg 120 Puff Inhaler INH 2 puff BID-RT ERENDIRA Administration Pantoprazole Sodium 40 mg 05/01/20 09:00 05/10/20 09:16 Pantoprazole 40 Mg Vial IVP 40 mg DAILY ERENDIRA Administration Senna 2 tab 05/05/20 21:00 05/09/20 20:34 Senokot 8.6 Mg Tab PO 2 tab HS ERENDIRA Administration Sodium Chloride 10 ml 04/29/20 03:15 05/04/20 08:06 Flush - Normal Saline 10 Ml Syringe IVF 10 ml PRN PRN Administration Saline Flush Zinc Sulfate 220 mg 04/29/20 09:00 05/10/20 09:19 Zinc Sulfate 220 Mg Cap PO 220 mg DAILY ERENDIRA Administration Hospitalist Exam Vitals: Vital Signs (12 hours) Temp Pulse Resp BP BP Pulse Ox 05/10/20 15:30 98.8 F 78 18 127/69 94 L 05/10/20 12:30 98.0 F 95 18 118/57 L 96 05/10/20 07:23 96 05/10/20 07:05 98.6 F 85 18 130/84 95 Weight Admit Weight 151 lb 4.8 oz Weight 141 lb 1.6 oz Most Recent Monitor Data Heart Rate from ECG 70 NIBP 176/91 NIBP BP-Mean 119 Respiration from ECG 18 SpO2 94 General Appearance: NAD Eye: PERRL ENT: normocephalic atraumatic Neck: supple Heart: RRR Respiratory: CTAB, no wheezes Gastrointestinal: soft Extremities: no cyanosis Skin: normal turgor Neurological: cranial nerve grossly intact Musculoskeletal: normal tone Psychiatric: normal affect, normal behavior, A&O x 3 Hosp A/P (1) Acute respiratory failure with hypoxia Code(s): J96.01 - ACUTE RESPIRATORY FAILURE WITH HYPOXIA Status: Acute (2) COPD exacerbation Code(s): J44.1 - CHRONIC OBSTRUCTIVE PULMONARY DISEASE W (ACUTE) EXACERBATION Status: Acute (3) Physical deconditioning Code(s): R53.81 - OTHER [place]ISE Status: Acute (4) Sepsis Code(s): A41.9 - SEPSIS, UNSPECIFIED ORGANISM Status: Acute Qualifiers: Sepsis acute organ dysfunction status: with acute organ dysfunction Severe sepsis acute organ dysfunction type: acute respiratory failure Acute respiratory failure type: with hypoxia Severe sepsis shock status: without septic shock (5) CAD (coronary artery disease) Code(s): I25.10 - ATHSCL HEART DISEASE OF [place] CORONARY ARTERY W/O ANG PCTRS Status: Chronic Qualifiers: Coronary Disease-Associated Artery/Lesion type: [place] artery [place] vs. transplanted heart: [place] heart Associated angina: without angina Qualified Code(s): I25.10 - Atherosclerotic heart disease of [place] coronary artery without angina pectoris (6) Giant bullous emphysema Code(s): J43.9 - EMPHYSEMA, UNSPECIFIED Status: Chronic (7) HLD (hyperlipidemia) Code(s): E78.5 - HYPERLIPIDEMIA, UNSPECIFIED Status: Chronic Qualifiers: Hyperlipidemia type: mixed hyperlipidemia Qualified Code(s): E78.2 - Mixed hyperlipidemia (8) Hemoptysis Code(s): R04.2 - HEMOPTYSIS Status: Resolved (9) Pancytopenia Code(s): D61.818 - OTHER PANCYTOPENIA Status: Resolved (10) Pneumonia due to COVID-19 virus Code(s): U07.1 - COVID-19; J12.82 - PNEUMONIA DUE TO CORONAVIRUS DISEASE 2019 Status: Acute - Plan Pt continue to improve, wean off to NC at 5L Continue taper steroid, empiric antibiotic with doxycycline. PT eval, updated family, pt's and son CM consult to home health/home PT
[2020-05-10] MEDS: Atorvastatin Calcium 40 MG TAB PO SCH (21:48)
[2020-05-10] MEDS: Senokot 8.6 MG TAB PO SCH (21:49)
[2020-05-10] MEDS: Melatonin 3 MG TAB PO PRN (21:50)
[2020-05-11 05:44] LABS: #Lymphocytes 0.7 thou/uL (1.20-3.40); #Neutrophils 13.6 thou/uL (1.40-6.50); %Basophils 0.2 % (0.0-1.0); %Eosinophils 0.3 % (0.0-10.0); %Lymphocytes 4.6 % (21.0-51.0); %Monocytes 6.6 % (0.0-10.0); %Neutrophils 88.3 % (42.0-75.0); Hemoglobin 16.2 g/dL (14.0-18.0); Mean Corpuscular HGB CONC 31.3 g/dL (32.0-36.0); Mean Corpuscular Hemoglobin 28.2 pg (27.0-31.0); Mean Platelet Volume 9.1 fL (7.4-10.4); Platelet Count 276 thou/uL (130-400); RBC Distribution Width 12.3 % (11.5-14.5); Red Blood Cell (RBC) Count 5.76 mill/uL (4.70-6.10); White Blood Cell (WBC) Count 15.3 thou/uL (4.8-10.8)
[2020-05-11 05:53] LABS: Anion Gap 13 mmol/L (10-20); BUN (Urea Nitrogen) 14 mg/dL (8.4-25.7); CRP (Inflammatory) 0.84 mg/dL (= or < 0.5); Calc. Creatinine Clearance 103 mL/min (70-130); Carbon Dioxide 21 mmol/L (23-31); Chloride 107 mmol/L (98-107); Glucose 134 mg/dL (80-115); Potassium 4.1 mmol/L (3.5-5.1); Sodium 137 mmol/L (136-145)
[2020-05-11] MEDS: Albuterol 200 PUFF (6.7GM INHALER) INH SCH ×4 (05:56→18:23)
[2020-05-11] MEDS: Mometasone 200 MCG/Formoterol 5 MCG 120 PUFF INHALER INH SCH ×2 (05:56→18:54)
[2020-05-11] MEDS: Ascorbic Acid 500 mg Chewable Tablet PO SCH (10:03)
[2020-05-11] MEDS: Aspirin 81 mg Enteric Coated Tablet PO SCH (10:03)
[2020-05-11] MEDS: Cholecalciferol 1,000 UNITS (25 MCG) TAB PO SCH (10:04)
[2020-05-11] MEDS: Calcium Carbonate 600 MG TAB PO SCH ×2 (10:04→22:15)
[2020-05-11] MEDS: Pantoprazole 40 MG VIAL IVP SCH (10:05)
[2020-05-11] MEDS: Enoxaparin Sodium 40 MG/0.4 ML SYRINGE SC SCH (10:05)
[2020-05-11] MEDS: Doxycycline 100 MG CAP PO SCH ×2 (10:05→22:13)
[2020-05-11] MEDS: Zinc Sulfate 220 MG CAP PO SCH (10:06)
[2020-05-11] MEDS: Multivitamin W/ Minerals 1 TAB PO SCH (10:06)
[2020-05-11] MEDS: methylPREDNISolone Sod Succ 40 MG VIAL IVP SCH (10:07)
--- NOTE | 2020-05-11 15:18 | PDOC.HOSPP ---
- Subjective Subjective: Patient was seen examined at bedside. Patient is doing significantly better today. His oxygen had weaned down to 3-4 L via nasal cannula. He is satting in the mid 90%. He is very conversant, and feeling well. Eager to get home. I have updated his on the phone. Also discussed with the case finisher to arrange his home health and home PT. - Objective Vital Signs & Weight: Vital Signs (12 hours) Temp Pulse Resp BP BP Pulse Ox 05/11/20 12:20 98.5 F 99 24 H 115/59 L 95 05/11/20 08:00 98.1 F 86 15 104/59 L 94 L 05/11/20 07:04 100 05/11/20 05:30 97.9 F 75 17 106/54 L 100 Weight Admit Weight 151 lb 4.8 oz Weight 142 lb 14.4 oz Most Recent Monitor Data Heart Rate from ECG 70 NIBP 176/91 NIBP BP-Mean 119 Respiration from ECG 18 SpO2 94 I&O: 05/10/20 05/11/20 05/12/20 06:59 06:59 06:59 Intake Total 390 629 Output Total 4127 7480 Balance -8369 -1843 Result Diagrams: 05/11/20 05:14 05/11/20 05:15 Radiology Reviewed by me: Yes EKG Reviewed by me: Yes Hospitalist ROS - Medication Medications: Active Medications Generic Name Dose Route Start Last Admin Trade Name Freq PRN Reason Stop Dose Admin Albuterol Sulfate 2 puff 05/08/20 11:00 05/11/20 10:24 Albuterol 200 Puff (6.7gm Inhaler) INH 2 puff [id number] ERENDIRA Administration Ascorbic Acid 1,000 mg 04/29/20 09:00 05/11/20 10:03 Ascorbic Acid 500 Mg Chewable Tablet PO 1,000 mg DAILY ERENDIRA Administration Aspirin 81 mg 05/04/20 09:00 05/11/20 10:03 Aspirin 81 Mg Enteric Coated Tablet PO 81 mg DAILY ERENDIRA Administration Atorvastatin Calcium 40 mg 04/30/20 21:00 05/10/20 21:48 Atorvastatin Calcium 40 Mg Tab PO 40 mg HS ERENDIRA Administration Calcium Carbonate 600 mg 04/30/20 09:00 05/11/20 10:04 Calcium Carbonate 600 Mg Tab PO 600 mg BID ERENDIRA Administration Cholecalciferol 5,000 units 04/29/20 09:00 05/11/20 10:04 Cholecalciferol 1,000 Units (25 Mcg) Tab PO 5,000 units DAILY ERENDIRA Administration Doxycycline Hyclate 100 mg 05/08/20 21:00 05/11/20 10:05 Doxycycline 100 Mg Cap PO 100 mg BID ERENDIRA Administration Enoxaparin Sodium 40 mg 05/02/20 09:00 05/11/20 10:05 Enoxaparin Sodium 40 Mg/0.4 Ml Syringe SC 40 mg 0900 ERENDIRA Administration Iron/Minerals/Multivitamins 1 tab 05/05/20 09:00 05/11/20 10:06 Multivitamin W/ Minerals 1 Tab PO 1 tab DAILY ERENDIRA Administration Lorazepam 0.5 mg 05/04/20 16:51 05/07/20 21:36 Lorazepam 2 Mg/Ml Vial SLOW IVP 0.5 mg Q6H PRN Administration Anxiety/Agitation Melatonin 6 mg 05/06/20 16:56 05/10/20 21:50 Melatonin 3 Mg Tab PO 6 mg HS PRN Administration Insomnia Mometasone Furoate/Formoterol Fumar 2 puff 04/30/20 18:30 05/11/20 05:56 Mometasone 200 Mcg/Formoterol 5 Mcg 120 Puff Inhaler INH 2 puff BID-RT ERENDIRA Administration Pantoprazole Sodium 40 mg 05/01/20 09:00 05/11/20 10:05 Pantoprazole 40 Mg Vial IVP 40 mg DAILY ERENDIRA Administration Senna 2 tab 05/05/20 21:00 05/10/20 21:49 Senokot 8.6 Mg Tab PO 2 tab HS ERENDIRA Administration Sodium Chloride 10 ml 04/29/20 03:15 05/04/20 08:06 Flush - Normal Saline 10 Ml Syringe IVF 10 ml PRN PRN Administration Saline Flush Zinc Sulfate 220 mg 04/29/20 09:00 05/11/20 10:06 Zinc Sulfate 220 Mg Cap PO 220 mg DAILY ERENDIRA Administration Hospitalist Exam Vitals: Vital Signs (12 hours) Temp Pulse Resp BP BP Pulse Ox 05/11/20 12:20 98.5 F 99 24 H 115/59 L 95 05/11/20 08:00 98.1 F 86 15 104/59 L 94 L 05/11/20 07:04 100 05/11/20 05:30 97.9 F 75 17 106/54 L 100 Weight Admit Weight 151 lb 4.8 oz Weight 142 lb 14.4 oz Most Recent Monitor Data Heart Rate from ECG 70 NIBP 176/91 NIBP BP-Mean 119 Respiration from ECG 18 SpO2 94 General Appearance: NAD Eye: PERRL ENT: normocephalic atraumatic Neck: supple Heart: RRR Respiratory: CTAB Gastrointestinal: soft Extremities: no cyanosis Skin: normal turgor Neurological: cranial nerve grossly intact Musculoskeletal: normal tone Psychiatric: normal affect, normal behavior, A&O x 3 Hosp A/P (1) Acute respiratory failure with hypoxia Code(s): J96.01 - ACUTE RESPIRATORY FAILURE WITH HYPOXIA Status: Acute (2) COPD exacerbation Code(s): J44.1 - CHRONIC OBSTRUCTIVE PULMONARY DISEASE W (ACUTE) EXACERBATION Status: Acute (3) Physical deconditioning Code(s): R53.81 - OTHER MAL[place]ISE Status: Acute (4) Sepsis Code(s): A41.9 - SEPSIS, UNSPECIFIED ORGANISM Status: Acute Qualifiers: Sepsis acute organ dysfunction status: with acute organ dysfunction Severe sepsis acute organ dysfunction type: acute respiratory failure Acute respiratory failure type: with hypoxia Severe sepsis shock status: without septic shock (5) CAD (coronary artery disease) Code(s): I25.10 - ATHSCL HEART DISEASE OF [place] CORONARY ARTERY W/O ANG PCTRS Status: Chronic Qualifiers: Coronary Disease-Associated Artery/Lesion type: [place] artery [place] vs. transplanted heart: [place] heart Associated angina: without angina Qualified Code(s): I25.10 - Atherosclerotic heart disease of [place] coronary artery without angina pectoris (6) Giant bullous emphysema Code(s): J43.9 - EMPHYSEMA, UNSPECIFIED Status: Chronic (7) HLD (hyperlipidemia) Code(s): E78.5 - HYPERLIPIDEMIA, UNSPECIFIED Status: Chronic Qualifiers: Hyperlipidemia type: mixed hyperlipidemia Qualified Code(s): E78.2 - Mixed hyperlipidemia (8) Hemoptysis Code(s): R04.2 - HEMOPTYSIS Status: Resolved (9) Pancytopenia Code(s): D61.818 - OTHER PANCYTOPENIA Status: Resolved (10) Pneumonia due to COVID-19 virus Code(s): U07.1 - COVID-19; J12.82 - PNEUMONIA DUE TO CORONAVIRUS DISEASE 2019 Status: Acute - Plan Pt continue to improve, wean off to [place] at 4L Transition to oral Prednisone, cont empiric antibiotic with doxycycline. PT eval, updated family, pt's and son CM consulted to home health/home PT Pt continues to do well, anticipate home tomorrow.
[2020-05-11] MEDS: Atorvastatin Calcium 40 MG TAB PO SCH (22:13)
[2020-05-11] MEDS: Senokot 8.6 MG TAB PO SCH (22:14)
[2020-05-12] MEDS ORDERED: predniSONE 20 MG TAB PO SCH (08:00)
[2020-05-12] MEDS: Aspirin 81 mg Enteric Coated Tablet PO SCH (08:24)
[2020-05-12] MEDS: Ascorbic Acid 500 mg Chewable Tablet PO SCH (08:24)
[2020-05-12] MEDS: Cholecalciferol 1,000 UNITS (25 MCG) TAB PO SCH (08:24)
[2020-05-12] MEDS: Calcium Carbonate 600 MG TAB PO SCH (08:24)
[2020-05-12] MEDS: Multivitamin W/ Minerals 1 TAB PO SCH (08:25)
[2020-05-12] MEDS: Doxycycline 100 MG CAP PO SCH (08:25)
[2020-05-12] MEDS: Enoxaparin Sodium 40 MG/0.4 ML SYRINGE SC SCH (08:25)
[2020-05-12] MEDS: Zinc Sulfate 220 MG CAP PO SCH (08:26)
[2020-05-12] MEDS: Pantoprazole 40 MG VIAL IVP SCH (08:26)
[2020-05-12] MEDS: Mometasone 200 MCG/Formoterol 5 MCG 120 PUFF INHALER INH SCH (09:02)
[2020-05-12] MEDS: Albuterol 200 PUFF (6.7GM INHALER) INH SCH ×3 (09:03→16:54)
[2020-05-12 12:20] VITALS: BP 98/52; TEMP 98.9
--- NOTE | 2020-05-12 13:07 | PDOC.DS.DS ---
Provider Date of Admission: 04/29/20 02:45 Date of Discharge: 05/12/20 Admitting Provider: Matt Grewal MD Consultations: Pulmonary Primary Care Physician: [facility], [facility] Hospital Course: Patient is a pleasant 69 years ago gentleman who has significant past medical history of of COPD, home O2 dependent, CAD with history of PCI, dyslipidemia, who was transferred from outside facility for short of breath. Apparently his oxygen was in the 80s upon arrival. He was tested positive for COVID-19 pneumonia. His chest x-ray showed worsening left lower lobe infiltrate. Patient had a giant bullous emphysema, kier tender estimate, he has about 20% of lung function left. At any rate, he was admitted to [facility]. He required high flow oxygen supplement. Patient was placed on Decadron, and treatment for his COVID-19 pneumonia including remdesivir, vitamin C, vitamin D, and zinc. Given the fact that he has quite small lung reserve left, he responded quite well. We was able to wean him down to his baseline home O2 requirement, which is about 3 L. At this time he is feeling well. His symptoms back to baseline. He request to be discharged home with home health. Plan of care also discussed with his at bedside. He will be discharged home with slow taper prednisone over the next 10 days or so, and Eliquis for DVT prophylaxis. Patient was advised to follow-up with Dr. Daniel as an outpatient for ongoing management of his COPD. Resuscitation Status: 05/03/20 13:02 Resuscitation Status Routine Co-Sign Provider: Resuscitation Status: PRTL: Cardiac only Discussed with: patient Additional comments: Discussed with Carrillo Land and son Fabien Land. Lengthy conversation, requested to transition to no intubation, cardiac only Lab Results: 05/11/20 05:14 05/11/20 05:15 Abnormal Lab Results - Last 48 hrs 05/11/20 05:14: WBC 15.3 H, MCHC 31.3 L, Neutrophils % 88.3 H, Lymphocytes % 4.6 L, Neutrophils # 13.6 H, Lymphocytes # 0.7 L, Monocytes # 1.0 H 05/11/20 05:15: Carbon Dioxide 21 L, Creatinine 0.63 L, C-Reactive Protein 0.84 H Vitals: Vital Signs (12 hours) Temp Pulse Resp BP Pulse Ox 05/12/20 11:22 98.9 F 84 22 H 98/52 L 96 05/12/20 09:18 93 L 05/12/20 08:02 97.4 F L 95 20 98/58 L 93 L 05/12/20 04:00 98.4 F 94 14 112/64 92 L Weight Admit Weight 151 lb 4.8 oz Weight 142 lb 14.4 oz Most Recent Monitor Data Heart Rate from ECG 70 NIBP 176/91 NIBP BP-Mean 119 Respiration from ECG 18 SpO2 94 Physical Exam: The patient was seen and examined on the day of discharge. General Appearance: NAD Eye: PERRL ENT: normocephalic atraumatic Neck: supple Respiratory: CTAB Cardiovascular: RRR Gastrointestinal: soft, non-tender Extremities: no cyanosis Skin: normal turgor, no lesions Neurological: cranial nerve grossly intact Musculoskeletal: normal tone, normal strength PSYCH: normal affect, normal behavior, A&O x 3 Problem Time Spent in discharge related activities (mins): 35 (1) Acute respiratory failure with hypoxia Code(s): J96.01 - ACUTE RESPIRATORY FAILURE WITH HYPOXIA Status: Acute (2) COPD exacerbation Code(s): J44.1 - CHRONIC OBSTRUCTIVE PULMONARY DISEASE W (ACUTE) EXACERBATION Status: Acute (3) Physical deconditioning Code(s): R53.81 - OTHER [place] Status: Acute (4) Sepsis Code(s): A41.9 - SEPSIS, UNSPECIFIED ORGANISM Status: Acute Qualifiers: Sepsis acute organ dysfunction status: with acute organ dysfunction Severe sepsis acute organ dysfunction type: acute respiratory failure Acute respiratory failure type: with hypoxia Severe sepsis shock status: without septic shock (5) CAD (coronary artery disease) Code(s): I25.10 - ATHSCL HEART DISEASE OF [place] CORONARY ARTERY W/O ANG PCTRS Status: Chronic Qualifiers: Coronary Disease-Associated Artery/Lesion type: [place] artery [place] vs. transplanted heart: [place] heart Associated angina: without angina Qualified Code(s): I25.10 - Atherosclerotic heart disease of [place] coronary artery without angina pectoris (6) Giant bullous emphysema Code(s): J43.9 - EMPHYSEMA, UNSPECIFIED Status: Chronic (7) HLD (hyperlipidemia) Code(s): E78.5 - HYPERLIPIDEMIA, UNSPECIFIED Status: Chronic Qualifiers: Hyperlipidemia type: mixed hyperlipidemia Qualified Code(s): E78.2 - Mixed hyperlipidemia (8) Hemoptysis Code(s): R04.2 - HEMOPTYSIS Status: Resolved (9) Pancytopenia Code(s): D61.818 - OTHER PANCYTOPENIA Status: Resolved (10) Pneumonia due to COVID-19 virus Code(s): U07.1 - COVID-19; J12.82 - PNEUMONIA DUE TO CORONAVIRUS DISEASE 2019 Status: Acute Plan Prescriptions: Apixaban [Eliquis] 2.5 mg PO BID #30 tab predniSONE 10 mg PO QAM-WM #30 tab Doxycycline [Vibramycin] 100 mg PO BID #14 cap Home Medications: Medication Instructions Recorded Confirmed Type Albuterol Sulfate [Albuterol 1.25 mg NEB Q6HR PRN 04/29/20 04/29/20 History Sulfate Neb] Aspirin [Ecotrin Low Strength] 81 mg PO DAILY 04/29/20 04/29/20 History Atorvastatin Calcium 40 mg PO HS 04/29/20 04/29/20 History Budesonide/Formoterol Fumarate 2 puff IH BID 04/29/20 04/29/20 History [Budesonide-Formoterol 160-4.5] Calcium Carbonate [Calcium] 600 mg PO BID 04/29/20 04/29/20 History Cholecalciferol (Vitamin D3) 125 mcg PO DAILY 04/29/20 04/29/20 History [Vitamin D3] Tiotropium [place] [Spiriva 2 puff IH DAILY 04/29/20 04/29/20 History Respimat] Apixaban [Eliquis] 2.5 mg PO BID #30 tab 05/12/20 Rx Doxycycline [Vibramycin] 100 mg PO BID #14 cap 05/12/20 Rx predniSONE 10 mg PO QAM-WM #30 tab 05/12/20 Rx Allergies: loratadine [From [facility] [place]] Allergy (Verified 04/29/20 06:26) Effected kidney function per pt. Activity:: Activity as Tolerated Therapies:: Home Health, Physical Therapy Equipment/Supplies:: Rudy Referrals: [facility] [Outside] [facility] [Primary Care Provider] - Disposition: HOME HEALTH Quality CORE MEASURES:: N/A
== END 2020-05-12 15:20 | disposition home health service (06) | DRG 871 ==
LOC: ERS 02:07 → 2SW 02:45 → IMCU/EMU 05-05 01:32 → 2SW 05-09 12:52
PROVIDERS: ADMIT Student in an Organized Health Care Education/Training Program; ATTEND Family Medicine
PROC: 8E0ZXY6 Isolation (ICD-10-PCS; principal; 2020-04-29)
PROC: XW033E5 Introduction of Remdesivir Anti-infective into Peripheral Vein, Percutaneous Approach, New Technology Group 5 (ICD-10-PCS; 2020-04-29)
DX: A41.89 Other specified sepsis (principal); U07.1 COVID-19; J12.82 Pneumonia due to coronavirus disease 2019; J96.01 Acute respiratory failure with hypoxia; D61.818 Other pancytopenia; R04.2 Hemoptysis; J43.9 Emphysema, unspecified; Z51.5 Encounter for palliative care; I25.10 Atherosclerotic heart disease of native coronary artery without angina pectoris; E78.5 Hyperlipidemia, unspecified; R65.20 Severe sepsis without septic shock; Z98.890 Other specified postprocedural states; Z98.52 Vasectomy status; Z79.82 Long term (current) use of aspirin; Z79.899 Other long term (current) drug therapy; Z87.891 Personal history of nicotine dependence; Z99.81 Dependence on supplemental oxygen
CPT/HCPCS: 36415; 71045; 71260; 80048; 80053; 80076; 81001; 82248; 82728; 83605; 83735; 84484; 85025; 85379; 85610; 85730; 86140; 93005; 93010; 93970; 94640; 96374; C9113; J1100; J1630; J1650; J1956; J2060; J2920; J2930; J3490; J7030; J7050; J7512; J7620; Q9967

== ENCOUNTER 2020-06-02 11:58 | Emergency (ER) | payer MEDICARE, OTHER ==
[2020-06-02 13:47] LABS: #Basophils 0.1 thou/uL (0.0-0.2); #Eosinphils 0.2 thou/uL (0.0-0.7); #Lymphocytes 1.7 thou/uL (1.20-3.40); #Monocytes 0.8 thou/uL (0.11-0.59); #Neutrophils 5.4 thou/uL (1.40-6.50); %Eosinophils 1.8 % (0.0-10.0); %Lymphocytes 20.5 % (21.0-51.0); %Monocytes 10.2 % (0.0-10.0); %Neutrophils 66.6 % (42.0-75.0); Hemoglobin 14.7 g/dL (14.0-18.0); Mean Corpuscular HGB CONC 33.6 g/dL (32.0-36.0); Mean Corpuscular Hemoglobin 30.9 pg (27.0-31.0); Mean Corpuscular Volume 91.9 fL (78.0-98.0); Mean Platelet Volume 8.8 fL (7.4-10.4); Platelet Count 231 thou/uL (130-400); Red Blood Cell (RBC) Count 4.77 mill/uL (4.70-6.10); White Blood Cell (WBC) Count 8.2 thou/uL (4.8-10.8)
== END 2020-06-02 14:26 | disposition home or self-care (01) ==
LOC: ERS 11:58
DX: R04.0 Epistaxis (principal); I25.10 Atherosclerotic heart disease of native coronary artery without angina pectoris; E78.5 Hyperlipidemia, unspecified; E78.00 Pure hypercholesterolemia, unspecified; J43.9 Emphysema, unspecified; Z95.5 Presence of coronary angioplasty implant and graft; Z86.16 Personal history of COVID-19; Z87.891 Personal history of nicotine dependence; Z79.82 Long term (current) use of aspirin; Z79.899 Other long term (current) drug therapy
CPT/HCPCS: 36415; 85025; 99283

== ENCOUNTER 2020-09-12 12:53 | Emergency (ER) | payer MEDICARE, OTHER ==
[2020-09-12 15:17] LABS: #Eosinphils 0.3 thou/uL (0.0-0.7); #Lymphocytes 1.5 thou/uL (1.20-3.40); #Monocytes 0.7 thou/uL (0.11-0.59); #Neutrophils 4.7 thou/uL (1.40-6.50); %Basophils 0.4 % (0.0-1.0); %Eosinophils 4.1 % (0.0-10.0); %Lymphocytes 20.6 % (21.0-51.0); %Monocytes 9.9 % (0.0-10.0); Hemoglobin 15.1 g/dL (14.0-18.0); Mean Corpuscular HGB CONC 32.6 g/dL (32.0-36.0); Mean Corpuscular Hemoglobin 29.6 pg (27.0-31.0); Mean Corpuscular Volume 90.8 fL (78.0-98.0); Mean Platelet Volume 8.6 fL (7.4-10.4); Platelet Count 228 thou/uL (130-400); RBC Distribution Width 11.4 % (11.5-14.5); Red Blood Cell (RBC) Count 5.11 mill/uL (4.70-6.10); White Blood Cell (WBC) Count 7.3 thou/uL (4.8-10.8)
[2020-09-12 15:31] LABS: ALT (SGPT) 14 U/L (8-55); AST (SGOT) 15 U/L (5-34); Alkaline Phosphatase 94 U/L (40-110); Anion Gap 14 mmol/L (10-20); BUN (Urea Nitrogen) 13 mg/dL (8.4-25.7); Calc. Creatinine Clearance 0 mL/min (70-130); Calcium 9.3 mg/dL (7.8-10.44); Carbon Dioxide 22 mmol/L (23-31); Chloride 107 mmol/L (98-107); Globulin 2.8 g/dL (2.4-3.5); Glucose 89 mg/dL (80-115); Potassium 3.9 mmol/L (3.5-5.1); Protein, Total 6.8 g/dL (5.8-8.1); Sodium 139 mmol/L (136-145)
[2020-09-12 16:45] LABS: Bilirubin Negative (Negative); Blood, Urine Negative (Negative); Clarity Clear (Clear); Glucose, Urine (Dipstick) Normal (Negative); Ketone, Urine Negative (Negative); Leukocyte Negative Leu/uL (Negative); Nitrite Negative (Negative); Protein, Urine (Dipstick) Negative (Neg-Trace); Specific Gravity, Urine 1.016 (1.002-1.036); Urobilinogen Normal mg/dL (Less than 2); pH, Urine 5.5 (5.0-9.0)
== END 2020-09-12 17:15 | disposition home or self-care (01) ==
LOC: ERS 12:53
DX: J44.9 Chronic obstructive pulmonary disease, unspecified (principal); R50.9 Fever, unspecified; I25.10 Atherosclerotic heart disease of native coronary artery without angina pectoris; E78.5 Hyperlipidemia, unspecified; E78.00 Pure hypercholesterolemia, unspecified; Z87.891 Personal history of nicotine dependence; Z79.01 Long term (current) use of anticoagulants; Z79.82 Long term (current) use of aspirin; Z79.899 Other long term (current) drug therapy
CPT/HCPCS: 36415; 71045; 80053; 81003; 83605; 85025; 87040; 87086; 94760

== ENCOUNTER 2021-02-23 08:15 | Outpatient (CLI) | payer OTHER | END 2021-02-23 08:16 | disposition home or self-care (01) | LOC: RAD 08:15 | PROVIDERS: ATTEND Internal Medicine Critical Care Medicine | DX: R06.00 Dyspnea, unspecified (principal) | CPT/HCPCS: 71046 ==